=== PATIENT | female | born 1965 | race Caucasian/White ===

== ENCOUNTER 2024-02-12 10:46 | Observation (INO) ==
--- NOTE | 2024-02-12 11:41 | Emergency Department Note ---
Impression & Plan AMS (altered mental status) ED Provider Note NAME: HANNY ESPINO AGE: 58 SEX: Female INFORMANT: Patient ED PROVIDER(S): Onel Zaldivar MD CHIEF COMPLAINT: Altered mental status PLAN: Disposition: Admitted Outpatient prescription management: none Referral: None MEDICAL DECISION MAKING: Patient presented with acute agitation and altered mental status. She was quite hysterical in triage. She was requesting tranquilizers. On evaluation the patient was somewhat evasive with questioning. She then agreed to a basic physical examination and something for her mood. She had an IV, blood work, ECG, chest x-ray, CT scan and BioFire testing ordered. IV Ativan was ordered. On reassessment the patient was more relaxed and calm. Patient had a nonischemic ECG. Patient's CBC and chemistry panels were unremarkable except for hypokalemia and dehydration. Cardiac troponin was negative. Magnesium was normal. TSH and talk screen was negative. The patient was given IV potassium and IV normal saline hydration. CT imaging of the head along with chest x-ray did not reveal any acute findings. Bio fire testing was negative. I had a long discussion with family and case management. Family does not feel that she is safe to go home and the patient is extremely paranoid. She is dehydrated. This certainly could be psychiatric but there is concerns due to her lack of history. Psychiatry was consulted here and they currently do not have any inpatient beds. They noted that they will consult on the patient if admitted for further management. Family asked for the patient to be admitted here. As the patient does not appear to have the capacity for son decision making and family is concerned about her ability to care a 302 petition statement was obtained by the manager garage. This was converted to warrant by the delegate. Patient is currently hemodynamically stable, albeit hypertensive. Consultation was made with Dr. Jeff Beck of the [facility] service. Patient was evaluated in the ER for further management. Care/management discussed with: manager garage Level of care consideration(s): After review of the information above and other included data, I feel the patient requires escalation of care to admission Triage Nursing notes: reviewed and agree them. Vital Signs: reviewed and remarkable for tachycardia Additional History obtained from: Patient's . He notes that she has been having alevism overtones and periods of abnormal behavior for several months. Chronic Medical/Social Conditions affecting care: Migraine Prior/ Outside/ External records reviewed: Primary care note reviewed from 2022. No concerning issues noted. Diagnosis: Migraines, hypertension. Differential Diagnosis: Psychiatric, infection, hypoglycemia, electrolyte abnormalities, overdose, toxicologic, cardiac sources, intracerebral event, neurologic, trauma, as well as other pathologies. Diagnostics, independently interpreted by me: ECG: Twelve-lead ECG reveals a normal sinus rhythm at 87 bpm. RVH. Poor R wave progression with nonspecific ST abnormality inferolaterally. Cardiac Monitoring: Cardiac monitoring ordered by me: The patient was placed on continuous cardiac monitoring and observed. It revealed a normal sinus rhythm at 80 beats per minute without ectopy or evidence of dysrhythmia. Medical decision rules: none Imaging studies: Head CT: A noncontrast CT scan of the head was performed and was negative for tumor, fracture, intracranial hemorrhage, or other acute pathology. Chest x-ray. Findings: A chest x-ray was performed and revealed no pneumothorax, effusion, infiltrate, pulmonary edema, free air under the diaphragm, or wide mediastinum. Impression: No acute disease. HPI: 58 year old Female arrives for evaluation of altered mental status. Family is present and helps with the history. Patient is requesting "I need tranquilizers". She also states that she has a brain tumor and she is going to . Patient was quite hysterical in triage and noted that Mc had put a tumor in the front of her brain. She feels like she is going to today. states over the last 2 months that she has been having periods where she seemed to be off and noting her alevism overtones. Patient was quite hysterical at times yesterday. He did summon EMS and police. She was evaluated by state police and he noted at that time she was very calm and without issues. She was not taken into custody. She became more hysterical today and family brought her to the emergency department. Patient is currently denying any headache, neck pain, back pain, urinary problems, chest pain, difficulty breathing, abdominal pain, vomiting, numbness, or visual changes. Patient is evasive about questioning and refusing to answer detailed inquiries. History is limited because of her cooperativity and paranoia. PAST MEDICAL HISTORY: See Below, hypertension, migraines PAST SURGICAL HISTORY: See Below, SOCIAL HISTORY: See Below, HOME MEDICATIONS: See Below ALLERGIES: See Below VITALS: See Below PHYSICAL EXAMINATION: GENERAL: Awake, alert, agitated-appearing, in mild distress HENT: Normocephalic, atraumatic. Oropharynx unremarkable. EYES: Normal conjunctiva. Sclera non-icteric. EOMI NECK: Inspection normal. Non-tender. Supple. No nuchal rigidity. FROM. No masses. RESPIRATORY: Clear to auscultation. No wheezes. No rales. Normal respiratory effort. CARDIAC: Normal rate. Normal rhythm. No murmurs. No rubs. Extremities warm and well perfused. Pulses equal. No JVD. GI: Soft, non-distended. No tenderness to palpation. No rebound or guarding. No masses. MUSCULOSKELETAL: Atraumatic. Chest examination reveals no tenderness. The back is symmetrical on inspection without obvious abnormality. There is no CVA tenderness to palpation. No joint edema. LOWER EXTREMITIES: Calves are equal size bilaterally and non-tender. No edema. No discoloration. NEURO: Normal sensorium. No sensory or motor deficits noted. SKIN: No rash or jaundice noted. PSYCH: Agitated mood. Christian overtones expressed. PROCEDURES: none CRITICAL CARE: none OBSERVATION NOTE: none Past Med/Surg History Medical History Asthma NO INHALERS- NO PROBLEM FOR YRS Depression GERD (gastroesophageal reflux disease) NO MEDS Hypertension Kidney stones Migraine Muscle spasm Surgical History H/O: hysterectomy History of appendectomy History of bowel resection 18 YRS AGO History of colonoscopy History of esophagogastroduodenoscopy (EGD) Social History Smoking Status: Never smoker Second Hand Exposure: No; Do You Dip or Chew Tobacco: No; Hx Alcohol Use: No Hx Substance Use: No Preferred Language: Peruvian Communication Ability: Effective Visual Impairment: No Limitations Hearing Ability: Normal Infrastructure Tech Required: No Beliefs That Will Affect Care: None marital status: Current Living Situation: Spouse current occupational status: employed 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 Feels Safe at Home: Yes caffeine: No Assistive Devices: None Allergies Allergies Allergy/AdvReac Type Severity Reaction Status Date / Time NSAIDS (Non-Steroidal Allergy Intermediate asthma Verified 07/27/23 14:44 Anti-Inflamma attack Home Meds Previous Rx's Medication Instructions Recorded amlodipine 10 mg tablet 10 mg PO DAILY #90 tabs 02/04/23 citalopram 20 mg tablet 20 mg PO DAILY #90 tabs 02/04/23 Results & Data (ED) Vital Signs Vital Signs - 24 hr 02/12/24 10:55 02/12/24 12:03 02/12/24 12:06 Temperature 36.6 C Temperature Source Skin Pulse Rate 120 H 94 H Pulse Rate [Right Finger] 89 Pulse Rate from SpO2 Sensor Pulse Rhythm [Right Finger] Regular Pulse Strength [Right Finger] Normal Respiratory Rate 20 12 Respiratory Effort / Characteristics Non-Labored Spontaneous Respiratory Depth Normal Respiratory Pattern Regular Blood Pressure 145/98 H Blood Pressure [Right Arm] 148/88 H Blood Pressure Mean 113 Blood Pressure Mean [Right Arm] 108 Pulse Oximetry 98 99 Oxygen Delivery Method Room Air Room Air Sepsis Recent Fever Within 48 Hours No Sepsis New/Unexplained Change in Mental Status N/A Sepsis Action Taken by Nursing No Action Required 02/12/24 13:19 02/12/24 14:55 02/12/24 15:00 Temperature Temperature Source Pulse Rate 78 71 Pulse Rate [Right Finger] 81 Pulse Rate from SpO2 Sensor 81 71 Pulse Rhythm [Right Finger] Pulse Strength [Right Finger] Respiratory Rate 14 17 17 Respiratory Effort / Characteristics Non-Labored Respiratory Depth Normal Respiratory Pattern Blood Pressure 145/93 H 135/88 Blood Pressure [Right Arm] 105/71 Blood Pressure Mean 110 103 Blood Pressure Mean [Right Arm] 82 Pulse Oximetry 96 96 100 Oxygen Delivery Method Room Air Sepsis Recent Fever Within 48 Hours Sepsis New/Unexplained Change in Mental Status Sepsis Action Taken by Nursing 02/12/24 15:00 02/12/24 15:30 02/12/24 16:00 Temperature Temperature Source Pulse Rate 75 67 Pulse Rate [Right Finger] 80 Pulse Rate from SpO2 Sensor 66 Pulse Rhythm [Right Finger] Pulse Strength [Right Finger] Respiratory Rate 20 25 H 22 Respiratory Effort / Characteristics Respiratory Depth Respiratory Pattern Blood Pressure 135/87 125/79 Blood Pressure [Right Arm] 135/88 Blood Pressure Mean 103 94 Blood Pressure Mean [Right Arm] 103 Pulse Oximetry 100 97 Oxygen Delivery Method Sepsis Recent Fever Within 48 Hours Sepsis New/Unexplained Change in Mental Status Sepsis Action Taken by Nursing 02/12/24 16:30 02/12/24 16:36 02/12/24 16:50 Temperature Temperature Source Pulse Rate 67 68 95 H Pulse Rate [Right Finger] Pulse Rate from SpO2 Sensor 67 Pulse Rhythm [Right Finger] Pulse Strength [Right Finger] Respiratory Rate 23 15 Respiratory Effort / Characteristics Respiratory Depth Respiratory Pattern Blood Pressure 118/76 Blood Pressure [Right Arm] Blood Pressure Mean 90 Blood Pressure Mean [Right Arm] Pulse Oximetry 97 Oxygen Delivery Method Sepsis Recent Fever Within 48 Hours Sepsis New/Unexplained Change in Mental Status Sepsis Action Taken by Nursing 02/12/24 17:00 02/12/24 17:00 02/12/24 17:00 Temperature Temperature Source Pulse Rate 84 Pulse Rate [Right Finger] 80 Pulse Rate from SpO2 Sensor Pulse Rhythm [Right Finger] Pulse Strength [Right Finger] Respiratory Rate 17 16 Respiratory Effort / Characteristics Respiratory Depth Respiratory Pattern Blood Pressure 148/94 H Blood Pressure [Right Arm] 148/94 H Blood Pressure Mean 111 Blood Pressure Mean [Right Arm] 112 Pulse Oximetry 97 98 Oxygen Delivery Method Room Air Sepsis Recent Fever Within 48 Hours Sepsis New/Unexplained Change in Mental Status Sepsis Action Taken by Nursing 02/12/24 17:10 02/12/24 17:20 02/12/24 17:40 Temperature Temperature Source Pulse Rate 85 82 74 Pulse Rate [Right Finger] Pulse Rate from SpO2 Sensor 73 Pulse Rhythm [Right Finger] Pulse Strength [Right Finger] Respiratory Rate 22 13 23 Respiratory Effort / Characteristics Respiratory Depth Respiratory Pattern Blood Pressure Blood Pressure [Right Arm] Blood Pressure Mean Blood Pressure Mean [Right Arm] Pulse Oximetry 99 100 Oxygen Delivery Method Sepsis Recent Fever Within 48 Hours Sepsis New/Unexplained Change in Mental Status Sepsis Action Taken by Nursing 02/12/24 19:00 Temperature Temperature Source Pulse Rate Pulse Rate [Right Finger] 80 Pulse Rate from SpO2 Sensor Pulse Rhythm [Right Finger] Pulse Strength [Right Finger] Respiratory Rate 19 Respiratory Effort / Characteristics Respiratory Depth Respiratory Pattern Blood Pressure Blood Pressure [Right Arm] 179/104 H Blood Pressure Mean Blood Pressure Mean [Right Arm] 129 Pulse Oximetry 99 Oxygen Delivery Method Room Air Sepsis Recent Fever Within 48 Hours Sepsis New/Unexplained Change in Mental Status Sepsis Action Taken by Nursing Laboratory Data 02/12/24 11:40 02/12/24 11:40 Lab Results 02/12/24 02/12/24 02/12/24 Range/Units 11:40 11:43 13:35 WBC 6.25 (4.8-10.8) K/ul RBC 4.91 (4.20-5.40) M/uL Hgb 14.7 (12.0-16.0) g/dl Hct 43.2 (37.0-47.0) % MCV 88.0 (80.0-100.0) fL MCH 29.9 (25.0-34.0) pg MCHC 34.0 (32.0-36.0) g/dL RDW Std Deviation 39.6 (36.4-46.3) fL RDW Coeff of Joshua 12.3 (11.5-14.5) % Plt Count 195 (130-400) K/uL MPV 9.8 (9.4-12.4) fL Immature Gran % (Auto) 0.2 % Neut % (Auto) 72.6 % Lymph % (Auto) 20.3 % Mckean % (Auto) 6.2 % Eos % (Auto) 0.2 % Baso % (Auto) 0.5 % Neut # (Auto) 4.54 (1.40-6.50) K/uL Lymph # (Auto) 1.27 (1.20-3.40) K/uL Mckean # (Auto) 0.39 (0.11-0.59) K/uL Eos # (Auto) 0.01 (0.00-0.50) K/uL Baso # (Auto) 0.03 (0.00-0.20) K/uL Immature Gran # (Auto) 0.01 (0.01-0.20) K/uL ESR 25 (0-30) mm/hr Sodium 141 (136-145) mmol/L Potassium 2.9 L (3.5-5.1) mmol/L Chloride 105 (98-107) mmol/L Carbon Dioxide 24 (21-32) mmol/L Anion Gap 12 H (3-11) BUN 19 (6-23) mg/dl Creatinine 0.66 (0.6-1.2) mg/dl Est Cr Clr Drug Dosing Not Reportable Est GFR ( Amer) 111.3 ml/min Est GFR (Non-Af Amer) 96.0 ml/min BUN/Creatinine Ratio 28.8 H (10-20) Glucose 115 H (70-99(Fasting)) mg/dl Calcium 10.3 (8.6-10.3) mg/dl Magnesium 2.0 (1.7-2.4) mg/dl Total Bilirubin 0.8 (0.2-1.0) mg/dl AST 17 (13-39) U/L ALT 16 (7-52) U/L Alkaline Phosphatase 69 (34-104) U/L Troponin I High Sens 6.5 (0-14) pg/ml Total Protein 7.9 (6.0-8.3) gm/dl Albumin 4.8 (3.4-5.0) gm/dl Globulin 3.1 (2.5-4.0) gm/dl Albumin/Globulin Ratio 1.5 (0.9-2) Procalcitonin < 0.02 (0-0.5) ng/ml TSH 1.209 (0.300-4.500) uIu/ml Urine Color Dark Yellow Urine Appearance Cloudy A (Clear) Urine pH 5.5 (4.5-7.5) Ur Specific Cornelius 1.032 H (1.000-1.030) Urine Protein 2+ H (Negative) Urine Glucose (UA) Negative (Negative) Urine Ketones 4+ H (Negative) Urine Blood Negative (Negative) Urine Nitrite Negative (Negative) Urine Bilirubin Negative (Negative) Urine Urobilinogen Negative (Negative) Ur Leukocyte Esterase Negative (Negative) Urine WBC (Auto) 0-5 (0-5) /hpf Urine RBC (Auto) 0-2 (0-2) /hpf U Hyaline Cast (Auto) 3-5 H (0-2) /lpf U Epithel Cells (Auto) 6-10 H (0-2) /hpf Urine Bacteria (Auto) 1+ H (None Seen) Ur Random Creatinine 251.9 mg/dl U Random Total Protein 128.5 H (0-11.9) mg/dl Protein/Creatinin Ratio 0.5 H (0-0.2) Salicylates < 3.0 L (3.0-30) mg/dl Urine Opiates Screen Neg (Neg) Ur Methadone, Qual Neg (Neg) Acetaminophen < 3 L (10-30) ug/ml Urine Barbiturates Neg (Neg) Ur Phencyclidine (PCP) Neg (Neg) U Amphetamin/Meth Scrn Neg (Neg) MDMA (Ecstasy) Screen Neg (Neg) U Benzodiazepines Scrn Neg (Neg) Ur Cocaine Metabolite Neg (Neg) U Marijuana (THC) Screen Neg (Neg) Ethyl Alcohol mg/dL < 10.0 (<10.0) mg/dl Adenovirus (PCR) Not Detected (NotDetected) B. pertussis DNA (PCR) Not Detected (NotDetected) B.parapertussis DNA PCR Not Detected (NotDetected) C. pneumoniae DNA (PCR) Not Detected (NotDetected) Coronavirus OC43 (PCR) Not Detected (NotDetected) Coronavirus HKU1 (PCR) Not Detected (NotDetected) Coronavirus 229E (PCR) Not Detected (NotDetected) SARS-CoV-2 (PCR) Not Detected (NotDetected) Coronavirus NL63 (PCR) Not Detected (NotDetected) Human Metapneumovir PCR Not Detected (NotDetected) Influenza Type A (PCR) Not Detected (NotDetected) Influenza Type B (PCR) Not Detected (NotDetected) M. pneumoniae (PCR) Not Detected (NotDetected) Parainfluenza 1 (PCR) Not Detected (NotDetected) Parainfluenza 2 (PCR) Not Detected (NotDetected) Parainfluenza 3 (PCR) Not Detected (NotDetected) Parainfluenza 4 (PCR) Not Detected (NotDetected) RSV (PCR) Not Detected (NotDetected) Entero/Rhino (PCR) Not Detected (NotDetected) Administered Medications Sodium Chloride (Nss) 1,000 mls @ 125 mls/hr IV .Q8H [facility] Stop: 03/13/24 12:59 Last Infusion: 02/12/24 14:02 Dose: 125 mls/hr Documented By: Infusion: 02/12/24 13:44 Dose: 0 mls/hr Documented By: Admin: 02/12/24 13:16 Dose: 125 mls/hr Documented By: INOCENCIO Discontinued Medications Potassium Chloride (K Brian / Wtr) 10 meq in 100 mls @ 100 mls/hr IV ONE ONE Stop: 02/12/24 13:47 Last Infusion: 02/12/24 14:18 Dose: Infused Documented By: Admin: 02/12/24 13:13 Dose: 100 mls/hr Documented By: INOCENCIO Sodium Chloride (Nss) 500 mls @ 999 mls/hr IV .Q31M ONE Stop: 02/12/24 13:18 Last Infusion: 02/12/24 14:03 Dose: Infused Documented By: Admin: 02/12/24 13:38 Dose: 999 mls/hr Documented By: JACKI Lorazepam (Lorazepam 1 Mg/1 Ml Syr Ed Inj Use) 2 mg IV ONE STA Stop: 02/12/24 11:31 Last Admin: 02/12/24 12:09 Dose: 2 mg Documented By: JACKI Imaging Data Radiologist's Impression: Chest X-Ray 02/12/24 11:09 SINGLE VIEW CHEST CLINICAL HISTORY: Change in mental status. FINDINGS: An AP, portable, semierect chest radiograph is compared to study dated 11/12/2022. The examination is degraded by portable technique and apical lordotic positioning. The cardiomediastinal silhouette is top normal for projection. The lungs and pleural spaces are clear. No pneumothorax is seen. The skeletal structures are osteopenic. The bony thorax is grossly intact. Degenerative change is noted in the thoracic spine. IMPRESSION: No active disease in the chest. ACT 112: Negative or not required by law. Electronically signed by: Daniel Gatica M.D. 02/12/2024 12:[address] 02/12/24 11:09 CT SCAN OF THE BRAIN WITHOUT IV CONTRAST CLINICAL HISTORY: Change in mental status. COMPARISON STUDY: No priors. TECHNIQUE: Unenhanced axial CT scan of the brain is performed from the vertex to the skull base. A dose lowering technique was utilized adhering to the principles of ALARA. CT DOSE: 547.75 mGy.cm FINDINGS: Brain parenchyma: The brain parenchyma is normal in appearance. There is no hemorrhage, mass effect, or evidence of acute territorial ischemia by CT criteria. Flores-white matter differentiation is preserved. No extra-axial fluid collection is seen. Ventricles, sulci, cisterns: Normal in configuration. Intracranial vasculature: There is atherosclerotic calcification of the cavernous carotid arteries. Calvarium: Unremarkable. Sinuses and mastoids: The visualized paranasal sinuses are clear. The mastoid air cells are well pneumatized. Orbits: The bony orbits are grossly intact. IMPRESSION: There is no hemorrhage, mass effect, or evidence of acute territorial ischemia by CT criteria. ACT 112: Negative or not required by law. Electronically signed by: Daniel Gatica M.D. 02/12/2024 12:31 PM Discharge Plan Visit Data Chief Complaint: Mental Health Evaluation Stated Complaint: BRAIN TUMOR/MENTAL HEALTH EVAL ED Provider: Onel Zaldivar Discharge Problem: AMS (altered mental status) Forms Stand Alone Forms: [facility] [employer], Suicide Prevention Resources Prescriptions Prescriptions: No Action amlodipine 10 mg tablet 10 mg PO DAILY Qty: 90 3RF citalopram 20 mg tablet 20 mg PO DAILY Qty: 90 3RF Referrals Referrals: Antonio Eisenberg MD [Primary Care Provider] -
[2024-02-12] MEDS: LORazepam 1 MG/1 ML SYR ED Inj Use IV STA (12:09)
[2024-02-12 12:22] LABS: Basophils # (auto) 0.03 K/uL (0.00-0.20); Basophils % (auto) 0.5 %; Eosinophils # (auto) 0.01 K/uL (0.00-0.50); Eosinophils % (auto) 0.2 %; Hematocrit (blood only) 43.2 % (37.0-47.0); Hemoglobin 14.7 g/dl (12.0-16.0); Immature Granulocytes # (auto) 0.01 K/uL (0.01-0.20); Immature Granulocytes % (auto) 0.2 %; Lymphocytes # (auto) 1.27 K/uL (1.20-3.40); Lymphocytes % (auto) 20.3 %; Mean Corpuscular Hemoglobin 29.9 pg (25.0-34.0); Mean Platelet Volume 9.8 fL (9.4-12.4); Monocytes # (auto) 0.39 K/uL (0.11-0.59); Monocytes % (auto) 6.2 %; Neutrophils # (auto) 4.54 K/uL (1.40-6.50); Neutrophils % (auto) 72.6 %; Platelet Count 195 K/uL (130-400); RDW Coefficient of Variation 12.3 % (11.5-14.5); RDW Standard Deviation 39.6 fL (36.4-46.3); Red Blood Count 4.91 M/uL (4.20-5.40); White Blood Count 6.25 K/ul (4.8-10.8)
[2024-02-12 12:30] LABS: Acetaminophen < 3 ug/ml (10-30); Alanine Aminotransferase 16 U/L (7-52); Albumin Globulin Ratio 1.5 (0.9-2); Albumin Level 4.8 gm/dl (3.4-5.0); Alkaline Phosphatase 69 U/L (34-104); Anion Gap 12 (3-11); Aspartate Aminotransferase 17 U/L (13-39); BUN Creatinine Ratio 28.8 (10-20); Bilirubin,Total 0.8 mg/dl (0.2-1.0); Blood Urea Nitrogen 19 mg/dl (6-23); Calcium 10.3 mg/dl (8.6-10.3); Carbon Dioxide 24 mmol/L (21-32); Chloride 105 mmol/L (98-107); Est GFR (African American) 111.3 ml/min; Globulin 3.1 gm/dl (2.5-4.0); Glucose 115 mg/dl (70-99(Fasting)); Potassium 2.9 mmol/L (3.5-5.1); Salicylate < 3.0 mg/dl (3.0-30); Sodium 141 mmol/L (136-145); Total Protein 7.9 gm/dl (6.0-8.3)
--- NOTE | 2024-02-12 12:34 | CT Scan Report ---
CT SCAN OF THE BRAIN WITHOUT IV CONTRAST CLINICAL HISTORY: Change in mental status. COMPARISON STUDY: No priors. TECHNIQUE: Unenhanced axial CT scan of the brain is performed from the vertex to the skull base. A d ose lowering technique was utilized adhering to the principles of ALARA. CT DOSE: 547.75 mGy.cm FINDINGS: Brain parenchyma: The brain parenchyma is normal in appearance. There is no hemorrhage, mass effect, or evidence of acute territorial ischemia by CT criteria. Flores-white matter differentiation is preser jazmin. No extra-axial fluid collection is seen. Ventricles, sulci, cisterns: Normal in configuration. Intracranial vasculature: There is atherosclerotic calcification of the cavernous carotid arteries. Calvarium: Unremarkable. Sinuses and mastoids: The visualized paranasal sinuses are clear. The mastoid air cells are well pneu matized. Orbits: The bony orbits are grossly intact. IMPRESSION: There is no hemorrhage, mass effect, or evidence of acute territorial ischemia by CT tristian reyes. ACT 112: Negative or not required by law. Electronically signed by: Daniel Gatica M.D. 02/12/2024 12:31 PM
--- NOTE | 2024-02-12 12:36 | XRay Report ---
SINGLE VIEW CHEST CLINICAL HISTORY: Change in mental status. FINDINGS: An AP, portable, semierect chest radiograph is compared to study dated 11/12/2022. The exami nation is degraded by portable technique and apical lordotic positioning. The cardiomediastinal silho uette is top normal for projection. The lungs and pleural spaces are clear. No pneumothorax is seen. The skeletal structures are osteopenic. The bony thorax is grossly intact. Degenerative change is not ed in the thoracic spine. IMPRESSION: No active disease in the chest. ACT 112: Negative or not required by law. Electronically signed by: Daniel Gatica M.D. 02/12/2024 12:35 PM
[2024-02-12 12:45] LABS: Thyroid Stimulating Hormone 1.209 uIu/ml (0.300-4.500)
[2024-02-12] MEDS: POTASSIUM CHLORIDE / WTR 10 MEQ/100 ML PLCT IV ONE (13:13)
[2024-02-12 13:15] LABS: Adenovirus PCR Not Detected (NotDetected); Bordetella parapertussis PCR Not Detected (NotDetected); Bordetella pertussis PCR Not Detected (NotDetected); Chlamydia pneumoniae PCR Not Detected (NotDetected); Coronavirus 229E PCR Not Detected (NotDetected); Coronavirus CoV-2 (COVID19)PCR Not Detected (NotDetected); Coronavirus HKU1 PCR Not Detected (NotDetected); Coronavirus NL63 PCR Not Detected (NotDetected); Coronavirus OC43PCR Not Detected (NotDetected); Human Metapneumovirus PCR Not Detected (NotDetected); Influenza A PCR Not Detected (NotDetected); Influenza B PCR Not Detected (NotDetected); Mycoplasma pneumoniae PCR Not Detected (NotDetected); Parainfluenza Virus 1 PCR Not Detected (NotDetected); Parainfluenza Virus 2 PCR Not Detected (NotDetected); Parainfluenza Virus 3 PCR Not Detected (NotDetected); Parainfluenza Virus 4 PCR Not Detected (NotDetected); Respiratory Syncytial VirusPCR Not Detected (NotDetected); Rhinovirus/Enterovirus PCR Not Detected (NotDetected)
[2024-02-12] MEDS: SODIUM CHLORIDE 0.9% 1,000 ML IV SCH (13:16)
[2024-02-12 13:35] LABS: Troponin I High Sensitivity 6.5 pg/ml (0-14)
[2024-02-12] MEDS: SODIUM CHLORIDE 0.9% 500 ML IV ONE (13:38)
[2024-02-12 13:59] LABS: Appearance Urine Cloudy (Clear); Bacteria Urine Automated 1+ (None Seen); Bilirubin Urine Negative (Negative); Blood Urine Negative (Negative); Color Urine Dark Yellow; Glucose Urine UA Negative (Negative); Ketones Urine 4+ (Negative); Leukocyte Esterase Urine Negative (Negative); Nitrite Urine Negative (Negative); Protein Urine 2+ (Negative); RBC Urine Automated 0-2 /hpf (0-2); Specific Gravity Urine 1.032 (1.000-1.030); Urobilinogen Urine Negative (Negative); WBC Urine Automated 0-5 /hpf (0-5); pH Urine 5.5 (4.5-7.5)
[2024-02-12 14:07] LABS: Amphetamines+Metham, Urine Neg (Neg); Barbiturates, Urine Neg (Neg); Benzodiazepine, Urine Neg (Neg); Cocaine, Urine Neg (Neg); MDMA (Ecstacy), Urine Neg (Neg); Marijuana, Urine Neg (Neg); Methadone, Urine Neg (Neg); Opiate, Urine Neg (Neg); Phencyclidine, Urine Neg (Neg)
--- NOTE | 2024-02-12 18:15 | History & Physical Report ---
Date of Service February 12, 2024 Assessment & Plan (1) Acute psychosis: Plan: Suspected auditory hallucinations - God/Mc, parents talking to her. Although she is shinto this is unusual for her Delusions of Jealousy ( being with other women) and somatic (feels she has a brain tumor and she is going to , says she is ) No prior episodes and appears to be reasonable acutely progressive over 6 weeks but much worse the last 2 days Multiple possible etiologies from history: 1) Insomnia 2) Drugs - Diphenhydramine, Excedrin, withdrawal from citalopram 3) Infective - encephalitis, lyme 4) Autoimmune - prior ALCON positive, encephalitis 5) Nutritional - recent diet changes, starvation ketosis, ?vitamin deficiencies 6) psychiatric - longstanding anxiety ?psychotic event Workup: Additional labs ordered - ammonia, VBG, lyme, ESR, CRP, phosphorus, B1, B12, ALCON with reflex, lyme Ideally would get brain MRI - patient currently refusing as she tells me she is Ideally would get lumbar puncture to rule out autoimmune encephalitis Consult psychiatry (2) Encounter for assessment of decision-making capacity: Plan: Patient lacks any insight into her current medical condition therefore does not currently have the caacity to leave against medical advice (3) Hypokalemia: Plan: Suspect due to poor intake, replacement given, repeat with AM labs (4) Anxiety: Plan: Continue citalopram (5) Hypertension: Plan: Continue amlodipine Plan VTE Prophyalxis - low risk, encourage ambulation Diet - regular Disposition - observation to med/surg Admission and Anticipated Discharge Date Admission Date: February 12, 2024 History of Present Illness Chief Complaint: Altered mental state Primary Care Provider: MD Kadie Grant is a 58 year old female who presents to the ER with altered mental state. No family members at bedside when seen. She reports she is in the ER because she went to her [place] house and asked her to bring her to the ER as her has been with other women and stolen money from her late father's estate and buried it. She is also here because she has been going through spiritual things - when I ask her to expand on this she says the spiritual things have made her go this way and that. She denies any current physical complaints. No fever, chills, respiratory, gastrointestinal or urinary complaints. She reports her anxiety is well controlled and initially told me she feels better since stopping the citalopram a few days ago because it made her feel jittery but later on she tells me she stopped the citalopram 3-4 months ago. She denies taking any sleep aids but does report sleeping 2 hours a night which she puts down to neck stiffness. She reports taking Excedrin daily for this neck stiffness. History of migraines in PCP notes although she reports no recent headaches. No vision, speech, hearing changes. No extremity weakness. After ordering the brain MRI she told her nurse and confirmed with me that she was so she couldn't have this and refused a test for confirmation. Discussed presentation with her and sister in law (Sari): 2 years ago her father and she has had problems with depression since. He thinks she has been taking diphenhydramine at night perhaps for the last 6 months to help with sleep and allergic nasal congestion. He also found pantoprazole (her father's prescription) in her bedside drawer. Over the last 6 weeks he describes her having more of a breakdown. She has increasingly had intermediate odd periods where she would say God, Mc and her parents were talking to her. Although she is shinto this appeared to be significantly abnormal for her. 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 These delusions have significantly increased the last 2 days and she has been rambling a lot more and not making sense. She tells her he is her whole world one minute then later accuses him of being with other women (which he denies). At work she stayed in her car and when a co-worker went to help her she said she had the devil inside her and not to touch her, she looked at the patricio and said the world was going to end. Yesterday she told her she had a brain tumor and she was going to . She told her to pray otherwise he was going to hell. He reports her diet has always been bad - loads up on peanut butter, chocolate and cookies but reportedly told she was overweight at her last PCP appointment 6 weeks ago so started dieting with fasting for 16 hours at a time. He notes she does take a multivitamin for her hair, nails. He confirms her sleep has also been bad sleeping 2 hours a night and wandering the rest of the time - he thinks this has been for the last 2-3 months. She has 37 pills of citalopram left in the bottle (picked up 90 pills 70 days ago) - therefore ?2 weeks of not taking citalopram although her reports she would miss the occasional days so more likely just a few days of missed pills, unlikely months as she reported above. Allergies Allergy/AdvReac Type Severity Reaction Status Date / Time NSAIDS (Non-Steroidal Allergy Intermediate asthma Verified 07/27/23 14:44 Anti-Inflamma attack Home Medications Medication Instructions Recorded Confirmed Type amlodipine 10 mg tablet 10 mg PO DAILY #90 tabs 02/04/23 02/12/24 Rx citalopram 20 mg tablet 20 mg PO DAILY #90 tabs 02/04/23 02/12/24 Rx Past Med/Surg History Medical History Asthma NO INHALERS- NO PROBLEM FOR YRS Depression GERD (gastroesophageal reflux disease) NO MEDS Hypertension Kidney stones Migraine Muscle spasm Surgical History H/O: hysterectomy History of appendectomy History of bowel resection 18 YRS AGO History of colonoscopy History of esophagogastroduodenoscopy (EGD) Social History Smoking Status: Never smoker Second Hand Exposure: No; Do You Dip or Chew Tobacco: No; Hx Alcohol Use: No Hx Substance Use: No Preferred Language: Romanian Communication Ability: Effective Visual Impairment: No Limitations Hearing Ability: Normal Bathroom Tiling Professional Required: No Beliefs That Will Affect Care: None marital status: Current Living Situation: Spouse current occupational status: employed 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 Feels Safe at Home: Yes caffeine: No Assistive Devices: None Review of Systems Review of Systems: All systems reviewed & are unremarkable except as noted in HPI & below Physical Exam Constitutional: WD/WN, vitals as above Eyes: PERRL, conjunctivae normal, anicteric sclerae EOM intact bilaterally ENMT: external ear and nose normal, oropharynx normal Neck: trachea midline, no thyromegaly Respiratory: normal respiratory effort, lungs clear to auscultation Cardiovascular: RRR, no murmur, no edema Gastrointestinal (Abdomen): normal bowel sounds, soft, nontender, no hepatosplenomegaly Musculoskeletal: no cyanosis or clubbing, extremities motor strength 5/5 Skin: no rashes, warm and dry Neurologic: CN's II-XI intact bilaterally, moves all extremities, awake and + confused; + abnormal deep tendon reflexes (increased b/l equal) and no focal motor deficits Psychiatric: Orientation: alert and oriented x 3 Apperance: appropriately dressed Eye Contact: good eye contact Motor Behavior: + psychomotor retardation Speech: normal rate/rhythm/volume of speech Affect: + flat affect Thought Process: + looseness of associations Thought Content: + paranoid and + delusions (jealous and somatic type ( being with other women, being )) Genitourinary: no CVA tenderness Results & Data Results & Data Vital Signs (Past 12 Hours) Vital Signs Temp Pulse Pulse Resp BP BP Pulse Ox 02/12/24 17:40 74 23 100 02/12/24 17:20 82 13 99 02/12/24 17:10 85 22 02/12/24 17:00 84 17 97 02/12/24 17:00 148/94 H 02/12/24 16:50 95 H 15 02/12/24 16:36 68 02/12/24 16:30 67 23 118/76 97 02/12/24 16:00 67 22 125/79 97 02/12/24 15:30 75 25 H 135/87 02/12/24 15:00 80 20 135/88 100 02/12/24 15:00 71 17 135/88 100 02/12/24 14:55 78 17 145/93 H 96 02/12/24 13:19 81 14 105/71 96 02/12/24 12:06 89 12 148/88 H 99 02/12/24 12:03 94 H 02/12/24 10:55 36.6 C 120 H 20 145/98 H 98 O2 Del Method 02/12/24 17:40 02/12/24 17:20 02/12/24 17:10 02/12/24 17:00 02/12/24 17:00 02/12/24 16:50 02/12/24 16:36 02/12/24 16:30 02/12/24 16:00 02/12/24 15:30 02/12/24 15:00 02/12/24 15:00 02/12/24 14:55 02/12/24 13:19 Room Air 02/12/24 12:06 Room Air 02/12/24 12:03 02/12/24 10:55 Room Air Laboratory Results Abnormal lab results 02/12/24 02/12/24 Range/Units 11:40 13:35 Potassium 2.9 L (3.5-5.1) mmol/L Anion Gap 12 H (3-11) BUN/Creatinine Ratio 28.8 H (10-20) Glucose 115 H (70-99(Fasting)) mg/dl Urine Appearance Cloudy A (Clear) Ur Specific [place] 1.032 H (1.000-1.030) Urine Protein 2+ H (Negative) Urine Ketones 4+ H (Negative) U Hyaline Cast (Auto) 3-5 H (0-2) /lpf U Epithel Cells (Auto) 6-10 H (0-2) /hpf Urine Bacteria (Auto) 1+ H (None Seen) U Random Total Protein 128.5 H (0-11.9) mg/dl Protein/Creatinin Ratio 0.5 H (0-0.2) Salicylates < 3.0 L (3.0-30) mg/dl Acetaminophen < 3 L (10-30) ug/ml Diagnostic Findings CT SCAN OF THE BRAIN WITHOUT IV CONTRAST CLINICAL HISTORY: Change in mental status. COMPARISON STUDY: No priors. TECHNIQUE: Unenhanced axial CT scan of the brain is performed from the vertex to the skull base. A dose lowering technique was utilized adhering to the principles of ALARA. CT DOSE: 547.75 mGy.cm FINDINGS: Brain parenchyma: The brain parenchyma is normal in appearance. There is no hemorrhage, mass effect, or evidence of acute territorial ischemia by CT criteria. Flores-white matter differentiation is preserved. No extra-axial fluid collection is seen. Ventricles, sulci, cisterns: Normal in configuration. Intracranial vasculature: There is atherosclerotic calcification of the cavernous carotid arteries. Calvarium: Unremarkable. Sinuses and mastoids: The visualized paranasal sinuses are clear. The mastoid air cells are well pneumatized. Orbits: The bony orbits are grossly intact. IMPRESSION: There is no hemorrhage, mass effect, or evidence of acute territorial ischemia by CT criteria. Medications Administered ER Medications Given: Lorazepam 2mg IV Potassium chloride 10 meq IV Normal saline 500ml bolus Normal saline @ 125ml/hr ECG Rate (beats per minute): 87 Rhythm: normal sinus Findings: + other (non-specific T wave flattening inferiorly) Comparison ECG Date: no prior available Code Status & VTE Plan Code Status Full VTE Prophylaxis Plan VTE Prophylaxis will be ordered: No PG Care Time/CCT Total # of Minutes Spent Total Time Spent with Patient: Total time spent is greater than 50% in coordination of care (as documented) at patient's floor/unit and/or counseling patient: Coding Level of Care Code 04218 INT INP/OBS CARE 3/75MIN Diagnoses Acute psychosis F23 Encounter for assessment of decision-making capacity Z00.8 Hypokalemia E87.6 Anxiety F41.9 Hypertension I10
[2024-02-12 18:37] LABS: Total Protein Urine Random 128.5 mg/dl (0-11.9)
[2024-02-12] MEDS ORDERED: diazePAM 5 MG/ML 10ML VIAL IV PRN (18:39)
[2024-02-12 18:43] LABS: Creatinine Urine Random 251.9 mg/dl; Protein Creatinine Ratio Urine 0.5 (0-0.2)
[2024-02-12 19:46] LABS: Base Excess VBG -1.3 mEq/L; HCO3 VBG 24 mmol/L; Oxygen Saturation VBG 78.3 %; PCO2 VBG 40 mmHg (38-50); PO2 VBG 47 mmHg; pH VBG 7.38 (7.36-7.41)
[2024-02-12 20:01] LABS: Phosphorus 2.5 mg/dl (2.5-4.9)
[2024-02-12] MEDS: POTASSIUM CHLORIDE CRTAB 20 MEQ TABCR PO STA (20:05)
[2024-02-12 20:34] LABS: Lyme Screen Rflx Confirmation Positive (Negative)
[2024-02-12 21:10] LABS: C Reactive Protein < 0.50 mg/dl (0-0.5)
[2024-02-12] MEDS: cefTRIAXone SODIUM 2,000 MG in DEXTROSE 5 % MINI-B 50 ML IV SCH (22:39)
[2024-02-13] MEDS: ACETAMINOPHEN 325 MG TAB PO PRN (03:04)
[2024-02-13] MEDS: amLODIPine BESYLATE 5 MG TAB PO SCH (07:32)
[2024-02-13] MEDS: CYANOCOBALAMIN (B-12) 500 MCG TABLET PO SCH (07:32)
[2024-02-13] MEDS: CITALOPRAM 20 MG TAB PO SCH (07:32)
[2024-02-13 07:59] LABS: Basophils # (auto) 0.03 K/uL (0.00-0.20); Basophils % (auto) 0.5 %; Eosinophils # (auto) 0.06 K/uL (0.00-0.50); Eosinophils % (auto) 0.9 %; Hematocrit (blood only) 38.3 % (37.0-47.0); Immature Granulocytes # (auto) 0.02 K/uL (0.01-0.20); Immature Granulocytes % (auto) 0.3 %; Lymphocytes # (auto) 2.27 K/uL (1.20-3.40); Lymphocytes % (auto) 35.7 %; Mean Corpuscular Hemoglobin 29.7 pg (25.0-34.0); Mean Corpuscular Hgb Conc 33.9 g/dL (32.0-36.0); Mean Corpuscular Volume 87.4 fL (80.0-100.0); Mean Platelet Volume 9.8 fL (9.4-12.4); Monocytes # (auto) 0.37 K/uL (0.11-0.59); Monocytes % (auto) 5.8 %; Neutrophils # (auto) 3.61 K/uL (1.40-6.50); Neutrophils % (auto) 56.8 %; Platelet Count 178 K/uL (130-400); RDW Coefficient of Variation 12.2 % (11.5-14.5); RDW Standard Deviation 39.6 fL (36.4-46.3); Red Blood Count 4.38 M/uL (4.20-5.40); White Blood Count 6.36 K/ul (4.8-10.8)
[2024-02-13 08:23] LABS: Alanine Aminotransferase 14 U/L (7-52); Albumin Globulin Ratio 1.6 (0.9-2); Albumin Level 4.1 gm/dl (3.4-5.0); Alkaline Phosphatase 55 U/L (34-104); Anion Gap 6 (3-11); Aspartate Aminotransferase 14 U/L (13-39); BUN Creatinine Ratio 18.2 (10-20); Bilirubin,Total 0.8 mg/dl (0.2-1.0); Blood Urea Nitrogen 10 mg/dl (6-23); Calcium 9.7 mg/dl (8.6-10.3); Carbon Dioxide 26 mmol/L (21-32); Chloride 109 mmol/L (98-107); Est GFR (African American) 118.2 ml/min; Est GFR (Non-African American) 101.9 ml/min; Globulin 2.6 gm/dl (2.5-4.0); Glucose 90 mg/dl (70-99(Fasting)); Phosphorus 2.5 mg/dl (2.5-4.9); Potassium 3.6 mmol/L (3.5-5.1); Sodium 141 mmol/L (136-145); Total Protein 6.7 gm/dl (6.0-8.3)
--- NOTE | 2024-02-13 13:06 | XRay Report ---
[facility] RADIOGRAP[facility] 3 VIEWS HISTORY: pre-MRI screening. COMPARISON: Head CT February 12, 2024. FINDINGS: There are no radiopaque foreign bodies identified within the orbits. IMPRESSION: No radiopaque foreign bodies identified within the orbits. ACT 112: Negative or not required by law. Electronically signed by: Arsh Serrano M.D. 02/13/2024 1:04 PM
--- NOTE | 2024-02-13 13:43 | Psychiatric Consultation ---
Date of Consultation February 13, 2024 Impression / Recommendations Impression Patient is a 58-year-old with a psychiatric history of bereavement and depression. No history of psychosis. Admitted for an psychotic episode with paranoia, and delusions (sabianism paranoid and somatic themes). This episode occurred in the context of some somatic complaints that include headaches difficulties with memory and attention word-finding, tinnitus, etc. And recent positive results for Lyme's disease and proteinuria. Her condition warrants further investigation due to concerns about psychosis related to a general medical condition. Both Lyme's disease and some other conditions that can cause proteinuria could produce late onset psychosis. There is no evidence of history of mitchell or psychosis at a younger age that was the diagnosis of bipolar disorder, schizophrenia, schizoaffective disorder is unlikely. The lack of adherence to citalopram prescribed to her as a low-dose is unlikely to cause symptoms with the severity that she is presenting. It is unlikely that the medication itself caused the psychosis since the symptoms appear to have started a couple of months ago and worsened in the last 2 weeks while she has been on the medication for a longer period of time. It is unclear if she had been taking [id number] supplements that could account for her psychotic symptoms. This needs further investigation. I agree with the treatment team regarding the need for vitamin B12 supplementation. Her current level of B12 could be adding to the mood symptoms and some of her somatic concerns but is unlikely to be related to the psychosis. The patient has agreed to 12 supplementation. Due to her age, abnormal results on the EKG, and increased overall cardiovascular risk, I do not recommend scheduled antipsychotics at this time. Low-dose olanzapine (2.5 mg - 5 mg daily) could be used as needed in case of severe agitation. The medication can be given in the ODT (melting form) formulation. (1) Unspecified psychosis not due to a substance or known physiological condition: (2) Acute psychosis: Plan 1. Continue monitoring of mood and psychotic symptoms. 2. Continue treatment for general medical conditions as prescribed by primary team. 3. Start B12 supplementation. 4. May use Zyprexa Zydis to 2.5 mg twice a day as needed for agitated psychosis. Not to exceed 5 mg in 24 hours. 5. Avoid the use of other medications with anticholinergic or sedative effect. 6. Continue one-to-one observation. 7. Psychiatry will continue to follow up. Psych History Identifying Data Dx with Depression and treated with Citalopram Chief Complaint "I am going through a spiritual passage I need to cleans my body". History of Present Illness Patient admitted on a 302 on the medical floor due to agitation, paranoia, somatic delusions, bizarre behavior. According to the ED provider note ". . . Patient presented with acute agitation and altered mental status. She was quite hysterical in triage. She was requesting tranquilizers. On evaluation the patient was somewhat evasive with questioning. She then agreed to a basic physical examination and something for her mood. . . CT imaging of the head along with chest x-ray did not reveal any acute findings. Bio fire testing was negative. I had a long discussion with family and case management. Family does not feel that she is safe to go home and the patient is extremely paranoid. . ." Ms. Roldan is a 58-year-old white female with prior history of complicated bereavement, unspecified depression who had been started on citalopram 10 mg daily by her PCP about a year ago due to concerns about depression following the of her father (2 years ago). The patient has no other psychiatric history. I evaluated her privately and her room at bedside. And also interviewed her . The patient told me that approximately 2 weeks ago she started experiencing severe headaches trouble finding her words difficulties with her memory and sleep disturbance. She indicated that she was waking up many times every night unable to have a restorative sleep but still able to perform well at work. She also described the new onset of tinnitus about 6 weeks ago the sound that she experiences are similar to the sound of planes trains furnace running. But denied hearing voices or seeing things. Her described that she may have been "seeing things" because she would express that she was getting messages from God and was writing on eggs and bringing home pictures of Mc making a lot of hyperreligious statements that were unusual for her. Her indicated that in the last month she probably missed 17 doses of her antidepressant medication. Upon admission to the hospital patient was found to have a positive result on the Lyme's disease screening test. Labs also showed proteinuria and low vitamin B12. Her EKG shows QTc of 490ms. Primary care started treatment with ceftriaxone 2g IV daily and B12 supplementation. SOCIAL HX The patient has been for 33 years. She she has no children. 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 The patient was raised by her parents they are now her mother 9 years ago her father 2 years ago. She has 2 brothers. Education: Patient completed high school and attended [employer] school for [employer]. 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 Patient denied a family history of bipolar disorder. Patient's reported that one of her brothers "has some problems" unknown diagnosis. Past Psychiatric History Previous Psych History: Diagnosed with bereavement and depression after the of her father. Prescribed citalopram 10 mg daily by her primary care physician Dr. Hernández. Outpatient Services: The patient denied a history of outpatient psychiatric treatment. Previous Psych Admissions: The patient denied a history of inpatient psychiatric treatment. History of Previous Suicide Attempt: No Past Medication Trials: Citalopram 10 mg daily Additional Notes: According to her the patient had been taking multiple [id number]-[id number] medications including: Benadryl for sleep, Excedrin for headaches, pantoprazole (her father's prescription), Allergies Allergy/AdvReac Type Severity Reaction Status Date / Time NSAIDS (Non-Steroidal Allergy Intermediate asthma Verified 07/27/23 14:44 Anti-Inflamma attack Home Medications Medication Instructions Recorded Confirmed Type amlodipine 10 mg tablet 10 mg PO DAILY #90 tabs 02/04/23 02/12/24 Rx citalopram 20 mg tablet 20 mg PO DAILY #90 tabs 02/04/23 02/12/24 Rx Patient History Medical History Asthma NO INHALERS- NO PROBLEM FOR YRS Depression GERD (gastroesophageal reflux disease) NO MEDS Hypertension Kidney stones Migraine Muscle spasm Surgical History H/O: hysterectomy History of appendectomy History of bowel resection 18 YRS AGO History of colonoscopy History of esophagogastroduodenoscopy (EGD) Social History Smoking Status: Never smoker Second Hand Exposure: No; Do You Dip or Chew Tobacco: No; Hx Alcohol Use: No Hx Substance Use: No Preferred Language: British Communication Ability: Effective Visual Impairment: No Limitations Hearing Ability: Normal Computer Numerical Control Programmer Required: No Beliefs That Will Affect Care: None marital status: Current Living Situation: Spouse current occupational status: employed 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 Speech: normal rate/rhythm/volume of speech Some subjective difficulty finding words. Able to answer questions utilizing appropriate vocabulary. Affect: + depressed affect, + anxious affect and + labile affect Mood: + depressed mood and + anxious mood Thought Process: + confabulations and + concrete thought process Thought Content: + preoccupation and + delusions (Paranoid and sabianism things, somatic delusions (, brain tumor)) Suicidal Thoughts: denies suicidal thoughts Homicidal Thoughts: denies homicidal thoughts Hallucinations: + auditory hallucinations (denied voices, reported she spoke about hearing God's voice.) Cognition: recent memory grossly intact; + attention not intact Unable to spell the word WORLD backwards. Unable to do serial 7s or serial of 3s. Able to repeat 3 out of 3 words immediately but unable to remember any of them after 5 minutes. Unable to recall any of the words even when provided with cues. Estimated Intelligence: consistent with education level Insight: + impaired insight Judgment: + impaired judgement Vital Signs (Past 24 Hours): Last Vital Signs Temp 36.7 C 02/12/24 21:37 Pulse 72 02/12/24 21:37 Resp 18 02/12/24 21:37 BP 160/88 H 02/12/24 21:37 Pulse Ox 99 02/12/24 21:37 O2 Del Method Room Air 04/20/24 21:37 Exam Statement: A physical exam was performed in the ED by Dr. Beck for the purposes of medical clearance. I accept that physical as correct and adequate for the purposes of the inpatient physical exam. Review of Systems Fatigue. Denied blurry vision, denied double vision. Positive for tinnitus Denied dysuria Complain of recent hair loss. Frequent headaches, difficulties with her memory, difficulties with language (word-finding). Complaining of unsteady gait. As stated above. Results & Data (PSY) Laboratory Results Microbiology 02/12/24 13:35 Urine,Clean Catch Urine Culture - Final More than three types of organisms present, all high counts mixed probable skin ayde - No further identifications or sensitivities to follow. Labs 02/12/24 02/12/24 02/12/24 11:40 11:43 13:35 WBC 6.25 RBC 4.91 Hgb 14.7 Hct 43.2 MCV 88.0 MCH 29.9 MCHC 34.0 RDW Std Deviation 39.6 RDW Coeff of Joshua 12.3 Plt Count 195 MPV 9.8 Immature Gran % (Auto) 0.2 Neut % (Auto) 72.6 Lymph % (Auto) 20.3 Ritchie % (Auto) 6.2 Eos % (Auto) 0.2 Baso % (Auto) 0.5 Neut # (Auto) 4.54 Lymph # (Auto) 1.27 Ritchie # (Auto) 0.39 Eos # (Auto) 0.01 Baso # (Auto) 0.03 Immature Gran # (Auto) 0.01 ESR 25 VBG pH VBG pCO2 VBG pO2 VBG HCO3 VBG O2 Saturation VBG Base Excess Carboxyhemoglobin Sodium 141 Potassium 2.9 L Chloride 105 Carbon Dioxide 24 Anion Gap 12 H BUN 19 Creatinine 0.66 Est Cr Clr Drug Dosing Not Reportable Est GFR ( Amer) 111.3 Est GFR (Non-Af Amer) 96.0 BUN/Creatinine Ratio 28.8 H Glucose 115 H Calcium 10.3 Phosphorus Magnesium 2.0 Total Bilirubin 0.8 AST 17 ALT 16 Alkaline Phosphatase 69 Ammonia Troponin I High Sens 6.5 C-Reactive Protein Total Protein 7.9 Albumin 4.8 Globulin 3.1 Albumin/Globulin Ratio 1.5 Vitamin B12 Procalcitonin < 0.02 TSH 1.209 Urine Color Dark Yellow Urine Appearance Cloudy A Urine pH 5.5 Ur Specific Bertha 1.032 H Urine Protein 2+ H Urine Glucose (UA) Negative Urine Ketones 4+ H Urine Blood Negative Urine Nitrite Negative Urine Bilirubin Negative Urine Urobilinogen Negative Ur Leukocyte Esterase Negative Urine WBC (Auto) 0-5 Urine RBC (Auto) 0-2 U Hyaline Cast (Auto) 3-5 H U Epithel Cells (Auto) 6-10 H Urine Bacteria (Auto) 1+ H Ur Random Creatinine 251.9 U Random Total Protein 128.5 H Protein/Creatinin Ratio 0.5 H Salicylates < 3.0 L Urine Opiates Screen Neg Ur Methadone, Qual Neg Acetaminophen < 3 L Urine Barbiturates Neg Ur Phencyclidine (PCP) Neg U Amphetamin/Meth Scrn Neg MDMA (Ecstasy) Screen Neg U Benzodiazepines Scrn Neg Ur Cocaine Metabolite Neg U Marijuana (THC) Screen Neg Ethyl Alcohol mg/dL < 10.0 Adenovirus (PCR) Not Detected B. pertussis DNA (PCR) Not Detected B.parapertussis DNA PCR Not Detected Lyme Disease Screen Lyme Disease IgG Ab Lyme Disease IgM Ab C. pneumoniae DNA (PCR) Not Detected Coronavirus OC43 (PCR) Not Detected Coronavirus HKU1 (PCR) Not Detected Coronavirus 229E (PCR) Not Detected SARS-CoV-2 (PCR) Not Detected Coronavirus NL63 (PCR) Not Detected Human Metapneumovir PCR Not Detected Influenza Type A (PCR) Not Detected Influenza Type B (PCR) Not Detected M. pneumoniae (PCR) Not Detected Parainfluenza 1 (PCR) Not Detected Parainfluenza 2 (PCR) Not Detected Parainfluenza 3 (PCR) Not Detected Parainfluenza 4 (PCR) Not Detected RSV (PCR) Not Detected Entero/Rhino (PCR) Not Detected 02/12/24 02/13/24 19:09 07:47 WBC 6.36 RBC 4.38 Hgb 13.0 Hct 38.3 MCV 87.4 MCH 29.7 MCHC 33.9 RDW Std Deviation 39.6 RDW Coeff of Joshua 12.2 Plt Count 178 MPV 9.8 Immature Gran % (Auto) 0.3 Neut % (Auto) 56.8 Lymph % (Auto) 35.7 Ritchie % (Auto) 5.8 Eos % (Auto) 0.9 Baso % (Auto) 0.5 Neut # (Auto) 3.61 Lymph # (Auto) 2.27 Ritchie # (Auto) 0.37 Eos # (Auto) 0.06 Baso # (Auto) 0.03 Immature Gran # (Auto) 0.02 ESR VBG pH 7.38 VBG pCO2 40 VBG pO2 47 VBG HCO3 24 VBG O2 Saturation 78.3 VBG Base Excess -1.3 Carboxyhemoglobin 2.6 Sodium 141 Potassium 3.6 D Chloride 109 H Carbon Dioxide 26 Anion Gap 6 BUN 10 Creatinine 0.55 L Est Cr Clr Drug Dosing Not Reportable Est GFR ( Amer) 118.2 Est GFR (Non-Af Amer) 101.9 BUN/Creatinine Ratio 18.2 Glucose 90 Calcium 9.7 Phosphorus 2.5 2.5 Magnesium 2.0 Total Bilirubin 0.8 AST 14 ALT 14 Alkaline Phosphatase 55 Ammonia 16.0 L Troponin I High Sens C-Reactive Protein < 0.50 Total Protein 6.7 Albumin 4.1 Globulin 2.6 Albumin/Globulin Ratio 1.6 Vitamin B12 276 Procalcitonin TSH Urine Color Urine Appearance Urine pH Ur Specific Bertha Urine Protein Urine Glucose (UA) Urine Ketones Urine Blood Urine Nitrite Urine Bilirubin Urine Urobilinogen Ur Leukocyte Esterase Urine WBC (Auto) Urine RBC (Auto) U Hyaline Cast (Auto) U Epithel Cells (Auto) Urine Bacteria (Auto) Ur Random Creatinine U Random Total Protein Protein/Creatinin Ratio Salicylates Urine Opiates Screen Ur Methadone, Qual Acetaminophen Urine Barbiturates Ur Phencyclidine (PCP) U Amphetamin/Meth Scrn MDMA (Ecstasy) Screen U Benzodiazepines Scrn Ur Cocaine Metabolite U Marijuana (THC) Screen Ethyl Alcohol mg/dL < 10.0 Adenovirus (PCR) B. pertussis DNA (PCR) B.parapertussis DNA PCR Lyme Disease Screen Positive H Lyme Disease IgG Ab Positive H Lyme Disease IgM Ab Positive H C. pneumoniae DNA (PCR) Coronavirus OC43 (PCR) Coronavirus HKU1 (PCR) Coronavirus 229E (PCR) SARS-CoV-2 (PCR) Coronavirus NL63 (PCR) Human Metapneumovir PCR Influenza Type A (PCR) Influenza Type B (PCR) M. pneumoniae (PCR) Parainfluenza 1 (PCR) Parainfluenza 2 (PCR) Parainfluenza 3 (PCR) Parainfluenza 4 (PCR) RSV (PCR) Entero/Rhino (PCR) Diagnostic Findings Psychosis, Unspecified. The differential includes toxic ingestions, psychiatric symptoms of general medical conditions. Medications Administered Acetaminophen (Acetaminophen 325 Mg Tab) 650 mg PO Q4H PRN PRN Reason: pain/fever Stop: 03/13/24 21:33 Last Admin: 02/13/24 09:36 Dose: 650 mg Documented By: Admin: 02/13/24 03:04 Dose: 650 mg Documented By: TRAY Amlodipine Besylate (Amlodipine Besylate 5 Mg Tab) 10 mg PO DAILY [facility] Stop: 03/14/24 08:59 Last Admin: 02/13/24 07:32 Dose: 10 mg Documented By: MADELEINE Citalopram Hydrobromide (Citalopram 20 Mg Tab) 20 mg PO DAILY [facility] Stop: 03/14/24 08:59 Last Admin: 02/13/24 07:32 Dose: 20 mg Documented By: MADELEINE Cyanocobalamin (Cyanocobalamin (B-12) 500 Mcg Tablet) 500 mcg PO QAM [facility] Stop: 03/14/24 08:59 Last Admin: 02/13/24 07:32 Dose: 500 mcg Documented By: MADELEINE Ceftriaxone Sodium 2,000 mg/ (Dextrose) 50 mls @ 100 mls/hr IV Q24H [facility]; Protocol Stop: 02/22/24 21:59 Last Infusion: 02/12/24 23:09 Dose: Infused Documented By: Admin: 02/12/24 22:39 Dose: 100 mls/hr Documented By: TRAY [place] [address] IN/OBS CONSULT LVL 5,80M Patient Type New History Comprehensive Exam Detailed Medical Decision Making High Complexity Diagnoses Unspecified psychosis not due to a substance or known physiological condition F29 Acute psychosis F23
[2024-02-13] MEDS: LORazepam 1 MG in SYRINGE 0.5 ML IV PRN (16:00)
--- NOTE | 2024-02-13 16:44 | Hospitalist Progress Note ---
Date of Service February 13, 2024 Assessment & Plan (1) Acute psychosis: Plan: Suspected auditory hallucinations - God/Mc, parents talking to her. Although she is taoist this is unusual for her Delusions of Jealousy ( being with other women) and somatic (feels she has a brain tumor and she is going to , says she is ) No prior episodes and appears to be reasonable acutely progressive over 6 weeks but much worse the last 2 days Multiple possible etiologies from history: 1) Insomnia 2) Drugs - Diphenhydramine, Excedrin, withdrawal from citalopram 3) Infective - encephalitis, lyme 4) Autoimmune - prior ALCON positive, encephalitis 5) Nutritional - recent diet changes, starvation ketosis, ?vitamin deficiencies 6) psychiatric - longstanding anxiety ?psychotic event, MDD with psychotic features -Currently Lyme antibodies are positive and Rocephin has been started for treatment of possible Lyme encephalitis, however, this would be an abnormal presentation -MRI ordered, but pre-MRI clearance unable to be adequately done by --> orbit x-ray ordered to rule out any previous metal foreign bodies -Patient does admit to claustrophobia and states that she would need to be sedated in order to have it done -Attempt to give 1 mg of Ativan prior to MRI of brain -Psychiatric consultation placed, appreciate recommendations: 1. Continue monitoring of mood and psychotic symptoms. 2. Continue treatment for general medical conditions as prescribed by primary team. 3. Start B12 supplementation. 4. May use Zyprexa Zydis to 2.5 mg twice a day as needed for agitated psychosis. Not to exceed 5 mg in 24 hours. 5. Avoid the use of other medications with anticholinergic or sedative effect. 6. Continue one-to-one observation. 7. Psychiatry will continue to follow up. -ALCON pending to look into ALCON associated encephalitis -Ideally lumbar puncture would be useful in diagnostic workup, however, patient unlikely to be willing to do so (2) Encounter for assessment of decision-making capacity: Plan: Patient lacks any insight into her current medical condition therefore does not currently have the caacity to leave against medical advice (3) Hypokalemia: Plan: -Secondary to poor p.o. intake -Improved to 3.6 on 02/13/2024 (4) Anxiety: Plan: Continue citalopram (5) Hypertension: Plan: Continue amlodipine Plan VTE Prophyalxis - low risk, encourage ambulation Diet - regular Disposition - observation to med/surg CODE STATUS: Full code Admission and Anticipated Discharge Date Admission Date: February 12, 2024 Supervising Physician Co-Signing Physician Notes ATTESTATION I also saw the patient and confirmed martinez portions of the history and exam. I agree with the impression and plan in the resident documentation, and as summarized below. Upon our morning exam, the patient is without complaints. She tells us that she needs to work on some things spiritually; when I asked her to expand on this, she declines. Just prior to seen the patient, I was able to speak with the in the hallway. He confirmed the history as delineated in the H&P and in the resident note. EXAM 160/88, 72, 18, 36.7, 99% on room air Heart is regular rhythm, slightly tachycardic Respirations are nonlabored DATA Labs CBC is unremarkable BUN 10, creatinine 0.55 Preliminary Lyme IgM/IgG positive Imaging Head CT completed 02/12/2024 shows no acute process. Micro Urine culture collected 02/12/2024 shows contamination with mixed skin ayde IMPRESSION & PLAN Acute psychoses with hallucination Major depressive disorder Insomnia Appreciate psychiatric consultation MRI brain today if she will allow She previously declined LP; may need to rediscuss tomorrow Agree with Rocephin pending preliminary Lyme result, although unsure if this explains her symptoms Additional per resident documentation Subjective Patient seen at bedside this morning. No acute events reported overnight. Patient states that she is here because "everyone thinks that she is crazy". Patient continues to believe that she has and does not want to have any unnecessary testing done that may affect her . She states that she is having a spiritual cleansing and that she speaks to God. She states that she is okay with getting a workup in general examination, however, she feels that her insight relating to her feelings of speaking to a deity is warranted. She is alert and oriented to person place and time. She is able to provide me her birthday as well as other objective data including the current president, where we are currently, and her place of work. Denies any joint pain at this time. Does admit to occasional headache but none currently. No other complaints at this time. Review of Systems Review of Systems: All systems reviewed & are unremarkable except as noted in HPI & below Physical Exam Constitutional: well developed and well nourished Eyes: + anicteric sclerae Neck: trachea midline, no thyromegaly Respiratory: normal respiratory effort, lungs clear to auscultation Cardiovascular: RRR, no murmur, no edema Gastrointestinal (Abdomen): normal bowel sounds, soft, nontender, no hepatosplenomegaly Skin: no rashes, warm and dry Neurologic: moves all extremities Psychiatric: A+Ox3, euthymic affect Thought Content: + paranoid and + delusions Suicidal Thoughts: denies suicidal thoughts Homicidal Thoughts: denies homicidal thoughts Hallucinations: + auditory hallucinations
--- NOTE | 2024-02-13 22:25 | Electrocardiogram Report ---
Test Reason : Blood Pressure : / mmHG Vent. Rate : 087 BPM Atrial Rate : 087 BPM P-R Int : 158 ms QRS Dur : 084 ms QT Int : 408 ms P-R-T Axes : 000 232 179 degrees QTc Int : 490 ms Normal sinus rhythm Cannot exclude arm lead reversal Right ventricular hypertrophy Possible Anterolateral infarct , age undetermined T wave abnormality, consider inferior ischemia Abnormal ECG No previous ECGs available Confirmed by Jeffrey Perkins ([id number]) on 02/13/2024 10:25:37 PM Referred By: REFERRED SELF Confirmed By:Jeffrey Perkins
[2024-02-14 07:17] LABS: Hematocrit (blood only) 38.5 % (37.0-47.0); Mean Corpuscular Hemoglobin 29.5 pg (25.0-34.0); Mean Corpuscular Hgb Conc 33.8 g/dL (32.0-36.0); Mean Corpuscular Volume 87.3 fL (80.0-100.0); Mean Platelet Volume 10.2 fL (9.4-12.4); Platelet Count 182 K/uL (130-400); RDW Coefficient of Variation 12.2 % (11.5-14.5); RDW Standard Deviation 39.2 fL (36.4-46.3); Red Blood Count 4.41 M/uL (4.20-5.40); White Blood Count 5.26 K/ul (4.8-10.8)
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
[2024-02-14 07:36] LABS: Alanine Aminotransferase 13 U/L (7-52); Albumin Globulin Ratio 1.6 (0.9-2); Albumin Level 4.1 gm/dl (3.4-5.0); Alkaline Phosphatase 52 U/L (34-104); Anion Gap 7 (3-11); Aspartate Aminotransferase 13 U/L (13-39); BUN Creatinine Ratio 18.9 (10-20); Bilirubin,Total 0.5 mg/dl (0.2-1.0); Blood Urea Nitrogen 10 mg/dl (6-23); Calcium 9.8 mg/dl (8.6-10.3); Carbon Dioxide 29 mmol/L (21-32); Chloride 107 mmol/L (98-107); Est GFR (African American) 119.6 ml/min; Est GFR (Non-African American) 103.2 ml/min; Globulin 2.6 gm/dl (2.5-4.0); Glucose 107 mg/dl (70-99(Fasting)); Potassium 2.9 mmol/L (3.5-5.1); Sodium 143 mmol/L (136-145); Total Protein 6.7 gm/dl (6.0-8.3)
[2024-02-14] MEDS: CYANOCOBALAMIN (B-12) 500 MCG TABLET PO SCH (08:43)
[2024-02-14] MEDS: POTASSIUM CHLORIDE CRTAB 20 MEQ TABCR PO STA (14:20)
--- NOTE | 2024-02-14 14:35 | Progress Note ---
Date of Service February 14, 2024 Assessment & Plan Admission and Anticipated Discharge Date Admission Date: February 14, 2024 Results & Data Vital Signs (Past 12 Hours) Vital Signs Temp Pulse Resp BP Pulse Ox O2 Del Method 02/14/24 08:33 36.5 C 84 16 167/95 H 97 Room Air
[2024-02-14] MEDS: LORazepam 1 MG in SYRINGE 0.5 ML IV STA ×2 (15:42→17:30)
[2024-02-14] MEDS: PROCHLORPERAZINE 5 MG in SYRINGE 4 ML IV ONE (16:44)
[2024-02-14] MEDS: LORazepam 1 MG in SYRINGE 0.5 ML IV PRN (16:45)
--- NOTE | 2024-02-14 16:58 | Billing Data ---
Date of Service February 14, 2024 Coding Level of Care Code 94703 SUB INP/OBS CARE
--- NOTE | 2024-02-14 19:27 | Psychiatric Progress Note ---
Date of Service February 14, 2024 Impression / Recommendations Impression Patient is a 58-year-old with a psychiatric history of bereavement and depression. No history of psychosis. Admitted for an psychotic episode with paranoia, and delusions (muslim paranoid and somatic themes). This episode occurred in the context of some somatic complaints that include headaches difficulties with memory and attention word-finding, tinnitus, etc. And recent positive results for Lyme's disease and proteinuria. Patient is receiving vitamin B12 supplementation and has agreed to have an MRI of the brain. She has not required PRN OLZ. (1) Unspecified psychosis not due to a substance or known physiological condition: (2) Acute psychosis: Plan 02/14/24: 1. Start Depakote DR 250mg po QHS 2. Continue treatment for general medical conditions as prescribed by primary team. 3. Continue monitoring of mood and psychotic symptoms.. 4. May use Zyprexa Zydis to 2.5 mg twice a day as needed for agitated psychosis. Not to exceed 5 mg in 24 hours. 5. Continue one-to-one observation. 7. Psychiatry will continue to follow up. 02/13/24: 1. Continue monitoring of mood and psychotic symptoms. 2. Continue treatment for general medical conditions as prescribed by primary team. 3. Start B12 supplementation. 4. May use Zyprexa Zydis to 2.5 mg twice a day as needed for agitated psychosis. Not to exceed 5 mg in 24 hours. 5. Avoid the use of other medications with anticholinergic or sedative effect. 6. Continue one-to-one observation. 7. Psychiatry will continue to follow up. Interval History Chief Complaint "[]". Review of Systems Notes I met with the patient for follow-up evaluation and later discussed the case with primary team. During the interview the patient was laying in bed in the position. She appeared tearful. Reported she was feeling scared. The patient indicated she has fears related to her health. She is concerned about the need for staying in the hospital, believes that staying in the hospital is an indication that she is suffering from a terminal condition. Although the patient strongly believes that this, she was receptive to some reassurance about the appropriateness of the admission and recommended studies and treatment plan. She continues to complain of headaches. When asked if she was taking [id number] vitamins like vitamin A, the patient stated that she was taking vitamins but was unable to provide information regarding which vitamins she was taking at home. We discussed a trial of low-dose Depakote to help with her mood. This medication can also help with the headache. Patient was educated about the rationale for recommending this medication, and agreed with the plan. Subjective Subjective Patient was seen & assessed and interval progress reviewed with [treatment team] [nursing and social work] Physical Exam Psychiatric Orientation: alert and oriented x 3 Apperance: appropriately dressed Eye Contact: good eye contact Motor Behavior: n tremor Speech: normal rate/rhythm/volume of speech Affect: + depressed affect, + anxious affect, + tearful affect and + labile affect Mood: + depressed mood and + anxious mood Thought Process: + looseness of associations, + confabulations and + concrete thought process Thought Content: + preoccupation, + paranoid and + delusions Suicidal Thoughts: denies suicidal thoughts Homicidal Thoughts: denies homicidal thoughts Hallucinations: + auditory hallucinations Cognition: recent memory grossly intact; + attention not intact Estimated Intelligence: consistent with education level Insight: + impaired insight Judgment: + impaired judgement Vital Signs (Past 24 Hours) Last Vital Signs Temp 37.0 C 02/14/24 15:01 Pulse 73 02/14/24 15:01 Resp 16 02/14/24 15:01 BP 164/96 H 02/14/24 15:01 Pulse Ox 99 02/14/24 15:01 O2 Del Method Room Air 02/14/24 15:01 Results & Data ([facility]) Laboratory Results Laboratory Results - last 24 hr 02/14/24 06:11 WBC 5.26 RBC 4.41 Hgb 13.0 Hct 38.5 MCV 87.3 MCH 29.5 MCHC 33.8 RDW Std Deviation 39.2 RDW Coeff of Joshua 12.2 Plt Count 182 MPV 10.2 Sodium 143 Potassium 2.9 L Chloride 107 Carbon Dioxide 29 Anion Gap 7 BUN 10 Creatinine 0.53 L Est Cr Clr Drug Dosing Pending Est GFR ( Amer) 119.6 Est GFR (Non-Af Amer) 103.2 BUN/Creatinine Ratio 18.9 Glucose 107 H Calcium 9.8 Total Bilirubin 0.5 AST 13 ALT 13 Alkaline Phosphatase 52 Total Protein 6.7 Albumin 4.1 Globulin 2.6 Albumin/Globulin Ratio 1.6 Current Inpatient Medications Current Inpatient Medications: Current Inpatient Medications Acetaminophen (Acetaminophen 325 Mg Tab) 650 mg PO Q4H PRN PRN Reason: pain/fever Stop: 03/13/24 21:33 Last Admin: 02/13/24 22:00 Dose: 650 mg Amlodipine Besylate (Amlodipine Besylate 5 Mg Tab) 10 mg PO DAILY [facility] Stop: 03/14/24 08:59 Last Admin: 02/14/24 08:43 Dose: 10 mg Citalopram Hydrobromide (Citalopram 20 Mg Tab) 20 mg PO DAILY [facility] Stop: 03/14/24 08:59 Last Admin: 02/14/24 08:43 Dose: 20 mg Cyanocobalamin (Cyanocobalamin (B-12) 500 Mcg Tablet) 1,000 mcg PO QAM [facility] Stop: 03/15/24 08:59 Last Admin: 02/14/24 08:43 Dose: 1,000 mcg Ceftriaxone Sodium 2,000 mg/ (Dextrose) 50 mls @ 100 mls/hr IV Q24H [facility]; Protocol Stop: 02/22/24 21:59 Last Infusion: 02/13/24 22:01 Dose: Infused
--- NOTE | 2024-02-15 06:50 | Hospitalist Progress Note ---
Date of Service February 15, 2024 Assessment & Plan (1) Acute psychosis: Plan: Suspected auditory hallucinations - God/Mc, parents talking to her. Although she is restorationist this is unusual for her. Delusions of Jealousy ( being with other women) and somatic (feels she has a brain tumor and she is going to , says she is ). No prior episodes and appears to be reasonable acutely progressive over 6 weeks but much worse the days leading up to admission. She seems to be improving, but it is unclear whether she is actually improving vs strategically not disclosing her symptoms to the clinical care team. 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 LP will be done as well. -Patient does admit to claustrophobia and states that she would need to be sedated in order to have it done -Continue following psych recommendations -ALCON pending to look into ALCON associated encephalitis (2) Encounter for assessment of decision-making capacity: Plan: Patient lacks any insight into her current medical condition therefore does not currently have the capacity to leave against medical advice (3) Anxiety: Plan: Continue citalopram (4) Hypertension: Plan: Continue amlodipine Plan VTE Prophyalxis - low risk, encourage ambulation Diet - regular Disposition - observation to med/surg CODE STATUS: Full code Admission and Anticipated Discharge Date Admission Date: February 14, 2024 Supervising Physician Co-Signing Physician Notes I personally examined the patient and verified all martinez points of history and exam, discussed case, and agree with decision making with Ventura Kelly MS2 Feeling better. Headache better. notes that she is acting much more like herself as well. Was unable to have MRI yesterday despite significant dosing of Ativan due to inadequate sedation for her severity of claustrophobia. She is willing to have MRI and LPjust feels that she needs to be adequately sedated. Discussed with anesthesiology, resident physician coordinated with radiologyand fortunately the plan appears to have come together for her to have MRI and lumbar puncture under sedation tomorrow. Patient and agreed to this plan. IMPRESSION & PLAN Acute psychoses with hallucination Major depressive disorder Insomnia Appreciate psychiatric consultation For MRI and LP tomorrow. Seems to be improving. Is not clear if there is a true improvement or waxing and waning at this early juncture; at the same time if it is improving, it is possible that this was ORDER PULLER Lyme and the ceftriaxone is helping. Certainly given that psychiatry does not believe this to be a primary psychiatric disorder, we will want to have the detailed medical workup to rule out other offending possibilities before concluding that this was ORDER PULLER Lyme. otherwise as above Subjective 02/14: She says she is feeling good today, is working through some personal problems and would like to keep them to herself this time. Ativan was trialed yesterday, but patient was still teary about the MRI, thus the MRI was not done. She again mentioned wanting to be knocked out in order to do the MRI. Wants present to walk her to the MRI room. Continues to say strange things, but 1:1 wasnt sure what exactly was said. She did cheek her meds yesterday, nursing team thinks it was the amlodipine and Celexa. She slept through the night again, no auditory/visual hallucinations that she reported. Is having on and off left lower quadrant pain, which has been present for the past 3 weeks. was present when patient was rounded on, he feels that she has been improving since her admission. Review of Systems Review of Systems: As noted in HPI Physical Exam Physical Exam: General: Does not appear in any acute distress. AxO4. Cardiovascular: Regular rate and rhythm. S1 and S2 sounds present. No murmurs, rubs, or gallops. Respiratory: Clear to auscultation bilaterally. No rales, wheezing, or rhonchi. GI: Normoactive bowel sounds. No masses appreciated on palpation. MSK: No edema visualized on extremities. MSE: No tics psychomotor agitations, tremors noted. Well-groomed, dressed in her own clothes. Able to follow commands and maintain eye contact. Alert and oriented to person, place, president, and year. Normal rate of speech, soft volume. Memory: appropriate short-term recall. Cognition: abstract thinking intact. Results & Data Results & Data Vital Signs (Past 12 Hours) Vital Signs Temp Pulse Resp BP Pulse Ox O2 Del Method 02/14/24 21:55 36.7 C 76 14 124/80 98 Room Air
[2024-02-15 08:46] LABS: Anion Gap 6 (3-11); BUN Creatinine Ratio 23.4 (10-20); Blood Urea Nitrogen 15 mg/dl (6-23); Calcium 10.2 mg/dl (8.6-10.3); Carbon Dioxide 30 mmol/L (21-32); Chloride 106 mmol/L (98-107); Est GFR (African American) 112.4 ml/min; Glucose 140 mg/dl (70-99(Fasting)); Potassium 3.5 mmol/L (3.5-5.1); Sodium 142 mmol/L (136-145)
[2024-02-15 14:03] LABS: Anti Nuclear Antibody Screen POSITIVE (NEGATIVE)
--- NOTE | 2024-02-15 14:39 | Anesthesiology Consultation ---
Date of Service February 15, 2024 Assessment & Plan (1) Encounter for pre-operative examination: Chart Review Chart Review: Acceptable Risk for Surgery History Surgery Operation Date: 02/16/24 12:30 Proposed Procedures p #2 Brain MRI with Anesthesia Sedation - Elkin Teran DO s #1 Lumbar Puncture with Anesthesia - Tano Craig PA-C Height/Weight Weight: 65.2 kg Allergies Allergy/AdvReac Type Severity Reaction Status Date / Time NSAIDS (Non-Steroidal Allergy Intermediate asthma Verified 07/27/23 14:44 Anti-Inflamma attack Medications Home Medications Medication Instructions Recorded Confirmed Last Taken amlodipine 10 mg tablet 10 mg PO DAILY #90 tabs 02/04/23 02/12/24 Unknown citalopram 20 mg tablet 20 mg PO DAILY #90 tabs 02/04/23 02/12/24 Unknown Active Medications Generic Name Dose Route Start Last Admin Trade Name Freq PRN Reason Stop Dose Admin Acetaminophen 650 mg 02/12/24 21:34 02/13/24 22:00 Acetaminophen 325 Mg Tab PO 03/13/24 21:33 650 mg Q4H PRN Administration pain/fever Amlodipine Besylate 10 mg 02/13/24 09:00 02/15/24 08:13 Amlodipine Besylate 5 Mg Tab PO 03/14/24 08:59 10 mg DAILY DERRICK Administration Citalopram Hydrobromide 20 mg 02/13/24 09:00 02/15/24 08:13 Citalopram 20 Mg Tab PO 03/14/24 08:59 20 mg DAILY DERRICK Administration Cyanocobalamin 1,000 mcg 02/14/24 09:00 02/15/24 08:13 Cyanocobalamin (B-12) 500 Mcg Tablet PO 03/15/24 08:59 1,000 mcg QAM DERRICK Administration Ceftriaxone Sodium 2,000 mg/ 50 mls @ 100 mls/hr 02/12/24 22:00 02/14/24 23:10 Dextrose IV 02/22/24 21:59 Infused Q24H [facility] Infusion Protocol Past Medical History Medical History (Updated 02/15/24 @ 14:39 by Turner Be MD) Unspecified psychosis not due to a substance or known physiological condition Mood disorder Migraine headache GERD (gastroesophageal reflux disease) NO MEDS Depression Migraine Kidney stones Hypertension Asthma NO INHALERS- NO PROBLEM FOR YRS Muscle spasm Past Surgical History Surgical History History of esophagogastroduodenoscopy (EGD) History of colonoscopy History of bowel resection 18 YRS AGO H/O: hysterectomy History of appendectomy Social History Smoking Status: Never smoker Do You Dip or Chew Tobacco: No Hx Alcohol Use: No Hx Substance Use: No substance use type: does not use Physical Exam Vital Signs Last Vital Signs Temp 36.5 C 02/15/24 07:29 Pulse 75 02/15/24 07:29 Resp 18 02/15/24 07:29 BP 145/82 H 02/15/24 07:29 Pulse Ox 98 02/15/24 07:29 O2 Del Method Room Air 02/15/24 07:29 Testing Laboratory Results 02/14/24 06:11 02/15/24 07:49 Urine Color Dark Yellow 02/12/24 13:35 Urine Appearance Cloudy (Clear) A 02/12/24 13:35 Urine pH 5.5 (4.5-7.5) 02/12/24 13:35 Ur Specific J[place] 1.032 (1.000-1.030) H 02/12/24 13:35 Urine Protein 2+ (Negative) H 02/12/24 13:35 Urine Glucose (UA) Negative (Negative) 02/12/24 13:35 Urine Ketones 4+ (Negative) H 02/12/24 13:35 Urine Nitrite Negative (Negative) 02/12/24 13:35 Ur Leukocyte Esterase Negative (Negative) 02/12/24 13:35 Urine WBC (Auto) 0-5 /hpf (0-5) 02/12/24 13:35 Urine RBC (Auto) 0-2 /hpf (0-2) 02/12/24 13:35 U Hyaline Cast (Auto) 3-5 /lpf (0-2) H 02/12/24 13:35 U Epithel Cells (Auto) 6-10 /hpf (0-2) H 02/12/24 13:35 Urine Bacteria (Auto) 1+ (None Seen) H 02/12/24 13:35 02/12/24 13:35 Urine Culture - Final Urine,Clean Catch More than three types of organisms present, all high counts mixed probable skin ayde - No further identifications or sensitivities to follow. Electrocardiogram Date: 02/12/24 Findings: + NSR @ (87) and + NSST changes
--- NOTE | 2024-02-15 15:55 | Psychiatric Progress Note ---
Date of Service February 15, 2024 Impression / Recommendations Impression Patient is a 58-year-old with a psychiatric history of bereavement and depression. No history of psychosis. Admitted for an psychotic episode with paranoia, and delusions (buddhist paranoid and somatic themes). This episode occurred in the context of some somatic complaints that include headaches difficulties with memory and attention word-finding, tinnitus, etc. And recent positive results for Lyme's disease and proteinuria. Patient is receiving vitamin B12 supplementation and has agreed to have an MRI of the brain. Patient has not received Olanzapine nor Depakote and is showing some improvement. Overall, I spent a total of 25 minutes with this case, including review of chart,direct evaluation of the patient,and documentation.] (1) Unspecified psychosis not due to a substance or known physiological condition: (2) Acute psychosis: Plan 02/15/24: 1. Depakote DR 250mg po QHS, may not be needed. Continue in case headaches con tinue. Discontinue if amonia level increases. 2. Continue treatment for general medical conditions as prescribed by primary team. 3. Continue monitoring of mood and psychotic symptoms. 4. May use Zyprexa Zydis to 2.5 mg twice a day as needed for agitated psychosis. Not to exceed 5 mg in 24 hours. 5. Discontinue one-to-one observation after MRI is completed 7. Psychiatry will continue to follow up. 02/14/24: 1. Start Depakote DR 250mg po QHS 2. Continue treatment for general medical conditions as prescribed by primary team. 3. Continue monitoring of mood and psychotic symptoms.. 4. May use Zyprexa Zydis to 2.5 mg twice a day as needed for agitated psychosis. Not to exceed 5 mg in 24 hours. 5. Continue one-to-one observation. 7. Psychiatry will continue to follow up. 02/13/24: 1. Continue monitoring of mood and psychotic symptoms. 2. Continue treatment for general medical conditions as prescribed by primary team. 3. Start B12 supplementation. 4. May use Zyprexa Zydis to 2.5 mg twice a day as needed for agitated psychosis. Not to exceed 5 mg in 24 hours. 5. Avoid the use of other medications with anticholinergic or sedative effect. 6. Continue one-to-one observation. 7. Psychiatry will continue to follow up. Interval History Chief Complaint "I fell a lot better". Subjective Subjective Patient was seen & assessed and interval progress reviewed. Patient evaluated in the company of the psychiatric liaison nurse. Patient was seated at the side table eating lunch. She recognized me and greeted me with an ampl smile. She indicated that she was feeling better today. Still agreeable to get the MRI done even though the headache was not present at the moment. When asked if she remembered some of the thoughts she had when she arrived at the hospital, like being , she smiled and dismissed them as illogical. Patient did not engage in extended conversation and did not elaborate about her current thoughts. She is still somewhat guarded but showing some progress. She denied feeling depressed. She has not attempted to elope, seems to understand the need to complete the treatment and is not showing agitation or violent behavior. Procedures Performed Operation Date: 02/16/24 12:30 <No data on this case meets the specified criteria> Physical Exam Psychiatric A+Ox3, euthymic affect Orientation: alert and oriented x 3 Apperance: appropriately dressed Eye Contact: good eye contact and + fair eye contact Motor Behavior: no abnormal motor movements and + psychomotor retardation; n tremor Speech: normal rate/rhythm/volume of speech Affect: euthymic affect; no depressed affect, no anxious affect and no tearful affect Mood: no depressed mood and no anxious mood Thought Process: + concrete thought process Thought Content: + delusions Suicidal Thoughts: denies suicidal thoughts Homicidal Thoughts: denies homicidal thoughts Hallucinations: no auditory hallucinations Cognition: recent memory grossly intact and attention grossly intact Estimated Intelligence: consistent with education level Insight: + fair insight Judgment: + fair judgement Vital Signs (Past 24 Hours) Last Vital Signs Temp 36.7 C 02/15/24 15:28 Pulse 77 02/15/24 15:28 Resp 20 02/15/24 15:28 BP 164/78 H 02/15/24 15:28 Pulse Ox 98 02/15/24 15:28 O2 Del Method Room Air 02/15/24 15:28 Results & Data ([facility]) Laboratory Results Laboratory Results - last 24 hr 02/13/24 02/15/24 07:47 07:49 Sodium 142 Potassium 3.5 D Chloride 106 Carbon Dioxide 30 Anion Gap 6 BUN 15 Creatinine 0.64 Est Cr Clr Drug Dosing Not Reportable Est GFR ( Amer) 112.4 Est GFR (Non-Af Amer) 97.0 BUN/Creatinine Ratio 23.4 H Glucose 140 H Calcium 10.2 ALCON Screen POSITIVE A Current Inpatient Medications Current Inpatient Medications: Current Inpatient Medications Acetaminophen (Acetaminophen 325 Mg Tab) 650 mg PO Q4H PRN PRN Reason: pain/fever Stop: 03/13/24 21:33 Last Admin: 02/13/24 22:00 Dose: 650 mg Amlodipine Besylate (Amlodipine Besylate 5 Mg Tab) 10 mg PO DAILY DERRICK Stop: 03/14/24 08:59 Last Admin: 02/15/24 08:13 Dose: 10 mg Citalopram Hydrobromide (Citalopram 20 Mg Tab) 20 mg PO DAILY DERRICK Stop: 03/14/24 08:59 Last Admin: 02/15/24 08:13 Dose: 20 mg Cyanocobalamin (Cyanocobalamin (B-12) 500 Mcg Tablet) 1,000 mcg PO QAM DERRICK Stop: 03/15/24 08:59 Last Admin: 02/15/24 08:13 Dose: 1,000 mcg Divalproex Sodium (Divalproex Delay Release 250 Mg Tabec) 250 mg PO HS DERRICK Stop: 03/16/24 20:59 Ceftriaxone Sodium 2,000 mg/ (Dextrose) 50 mls @ 100 mls/hr IV Q24H [facility]; Protocol Stop: 02/22/24 21:59 Last Infusion: 02/14/24 23:10 Dose: Infused
[2024-02-15 18:25] LABS: ANA Pattern Cytoplasmic
--- NOTE | 2024-02-15 18:29 | Billing Data ---
Date of Service February 15, 2024 Coding Level of Care Code 63851 SUB INP/OBS CARE
[2024-02-15] MEDS: DIVALPROEX DELAY RELEASE 250 MG TABEC PO SCH (22:05)
[2024-02-16 06:15] LABS: Hematocrit (blood only) 38.2 % (37.0-47.0); Hemoglobin 12.7 g/dl (12.0-16.0); Mean Corpuscular Hemoglobin 29.7 pg (25.0-34.0); Mean Corpuscular Hgb Conc 33.2 g/dL (32.0-36.0); Mean Corpuscular Volume 89.3 fL (80.0-100.0); Mean Platelet Volume 10.1 fL (9.4-12.4); Platelet Count 183 K/uL (130-400); RDW Coefficient of Variation 12.3 % (11.5-14.5); RDW Standard Deviation 39.9 fL (36.4-46.3); Red Blood Count 4.28 M/uL (4.20-5.40); White Blood Count 6.16 K/ul (4.8-10.8)
[2024-02-16 06:34] LABS: Anion Gap 6 (3-11); BUN Creatinine Ratio 23.1 (10-20); Blood Urea Nitrogen 15 mg/dl (6-23); Calcium 9.4 mg/dl (8.6-10.3); Carbon Dioxide 31 mmol/L (21-32); Chloride 105 mmol/L (98-107); Est GFR (African American) 111.8 ml/min; Est GFR (Non-African American) 96.5 ml/min; Glucose 101 mg/dl (70-99(Fasting)); Potassium 3.6 mmol/L (3.5-5.1); Sodium 142 mmol/L (136-145)
--- NOTE | 2024-02-16 07:50 | Hospitalist Progress Note ---
"Date of Service February 16, 2024 Assessment & Plan (1) Acute psychosis: Plan: Auditory Hallucination | Acute Psychosis - Presentation w/ hallucinations of God/Mc, relatives, having a brain tumor, and personal/family member's being - Progressed over the last 6 weeks, but most acutely 2-3 days prior to admission Multiple possible etiologies from history: 1) Insomnia - extended period of interrupted/insufficient sleep 2) -D-r-u-g-s- - Diphenhydramine, Excedrin, withdrawal from citalopram 3) Infective - encephalitis, lyme 4) -A-s-r-u-z-t-m-u-n-e- - prior ALCON positive, encephalitis 5) -R-a-d-p-u-d-i-o-n-a-l- - recent diet changes, starvation ketosis, vitamin deficiencies 6) Psychiatric - longstanding anxiety, psychotic event, MDD with psychotic features - Received MRI/LP under general anesthesia today - MRI negative - Full CSF results pending - Rocephin ongoing for potential Lyme (IgG and IgM positive, bands pending), 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, CSF studies pending - Psychiatry following, appreciate recommendations: Added Depakote and B12 supplementation, Zyprexa 2.5 mg BID for agitated psychosis - ALCON remains elevated, but unchanged from prior, MRI & preliminary CSF w/o changes consistent with autoimmune etiology - Continue to suspect acute psychosis (2) Encounter for assessment of decision-making capacity: Plan: Patient currently AO x 4 with insight (3) Hypokalemia: Plan: - Resolved, continue to follow (4) Anxiety: Plan: Continue citalopram (5) Hypertension: Plan: Continue amlodipine Plan VTE Prophyalxis - low risk, encourage ambulation Diet - Regular Disposition - Med/Surg CODE STATUS: Full code Admission and Anticipated Discharge Date Admission Date: February 14, 2024 Supervising Physician Co-Signing Physician Notes I personally examined the patient and verified all martinez points of history and exam, discussed case, and agree with decision making with Dr Meier Feeling better overall. MRI and LP went well. Updated and patient to the best of my ability. Vitals noted, in general she is awake and alert pleasant no distress. HEENT normocephalic atraumatic mucous membranes moist. Breathing unlabored no accessory muscle use good effort. Skin without rashes pallor or icterus. IMPRESSION & PLAN Acute psychoses with hallucination Major depressive disorder Insomnia Appreciate psychiatric consultation MRI and initial studies on LP reassuringobviously multiple send out studies on LP pending. In discussion with psychiatrywould like to obtain EEG to rule out temporal lobe epilepsy. Is not clear if there is a true improvement or waxing and waning at this early juncture; at the same time if it is improving, it is possible that this was [employer] Lyme and the ceftriaxone is helping. Certainly given that psychiatry does not believe this to be a primary psychiatric disorder, in the end if we rule out other offending possibilities we could eventually arrive at the conclusion that this was [employer] Lyme. otherwise as above Subjective 02/15: Patient notes she is feeling better. She notes that she was awake some of the night due to anxiety regarding her procedure today. Patient was able to more freely discuss the events of her admission today. She is no longer having thoughts about being or her nieces being . She also notes that she was on a spiritual journey prior to admission, and that she has reconciled those problems and is feeling much better about them - thought she was not willing to elaborate further. Patient further denied any chest pain, dyspnea, abdominal pain, nausea or vomiting. She is not experiencing any headaches, vision changes, or hallucinations. She continues to endorse a good appetite. Patient feels like she has been improving over the last few days. Physical Exam Physical Exam: General: NAD, pleasant, AO x 4 (w/ situational awareness) Cardiovascular: RRR, normal S1/S2. No murmurs, rubs, or gallops. Respiratory: Clear to auscultation bilaterally. No rales, wheezing, or rhonchi. Non-labored. GI: Normoactive bowel sounds. No masses appreciated on palpation. MSK: No edema visualized on extremities. Skin: No rashes, lesions, or erythema Results & Data Results & Data Vital Signs (Past 12 Hours) Vital Signs Temp Pulse Resp BP Pulse Ox O2 Del Method 02/16/24 07:35 36.7 C 69 18 156/90 H 97 Room Air Resident Activity Tracking Resident Involvement: Resident Care Provided Care Provided: Adult [facility] Medicine"
--- NOTE | 2024-02-16 09:48 | Psychiatric Progress Note ---
Date of Service February 16, 2024 Impression / Recommendations Impression Patient is a 58-year-old with a psychiatric history of bereavement and depression. No prior history of psychosis. Admitted for an psychotic episode with paranoia, and delusions (judaism paranoid and somatic themes). This episode occurred in the context of some somatic complaints that include headaches difficulties with memory and attention word-finding, tinnitus, positive results for Lyme's disease, and proteinuria. Her blood pressure has been consistently elevated since the evening of February 11. MRI is pending. Patient was not as cheerful as yesterday. Complained of anxiety and insomnia. Her subjective sensation of anxiety me be heightened by the bodily sensations that accompany the BP elevation. She received Depakote 250 mg last night which did not appear to sedate her.she denied side effects from the medication and is willing to increase the dose to 500mg HS. If no changes with Depakote, may try Olanzapine. Patient has not received Olanzapine PRN (no agitation). Will leave OLZ as second choice due to concerns about cardiovascular risk and metabolic side effects. Overall, I spent a total of 30 minutes with this case, including review of chart,direct evaluation of the patient,and documentation.] (1) Unspecified psychosis not due to a substance or known physiological condition: (2) Acute psychosis: Plan 02/16/24: 1. Consider increasing Depakote DR to 500mg po QHS. Patient agreed to try a higher dose. 2. Continue treatment for general medical conditions as prescribed by primary team. 3. Continue monitoring of mood and psychotic symptoms. 4. May use Zyprexa Zydis to 2.5 mg twice a day as needed for agitated psychosis. Not to exceed 5 mg in 24 hours. 5. Discontinue one-to-one observation after MRI is completed 7. Psychiatry will continue to follow up. 02/15/24: 1. Depakote DR 250mg po QHS, may not be needed. Continue in case headaches continue. Discontinue if amonia level increases. 2. Continue treatment for general medical conditions as prescribed by primary team. 3. Continue monitoring of mood and psychotic symptoms. 4. May use Zyprexa Zydis to 2.5 mg twice a day as needed for agitated psychosis. Not to exceed 5 mg in 24 hours. 5. Discontinue one-to-one observation after MRI is completed 7. Psychiatry will continue to follow up. 4/22/24: 1. Start Depakote DR 250mg po QHS 2. Continue treatment for general medical conditions as prescribed by primary team. 3. Continue monitoring of mood and psychotic symptoms.. 4. May use Zyprexa Zydis to 2.5 mg twice a day as needed for agitated psychos is. Not to exceed 5 mg in 24 hours. 5. Continue one-to-one observation. 7. Psychiatry will continue to follow up. 02/13/24: 1. Continue monitoring of mood and psychotic symptoms. 2. Continue treatment for general medical conditions as prescribed by primary team. 3. Start B12 supplementation. 4. May use Zyprexa Zydis to 2.5 mg twice a day as needed for agitated psychosis. Not to exceed 5 mg in 24 hours. 5. Avoid the use of other medications with anticholinergic or sedative effect. 6. Continue one-to-one observation. 7. Psychiatry will continue to follow up. Suicide Risk Level Suicide Risk Level: Low (q15 min observation checks) Interval History Chief Complaint "I didn't sleep last night". Subjective Subjective Patient was seen & assessed and interval progress reviewed.Patient evaluated at bedside. 1: 1 sitter outside the door. Patient was calm and cooperative. She denied side effects from the initial dose of Depakote last night. Reported that she is still having headaches. When asked about her mood stated that her mood has improved. She is no longer holding the believes of being . When asked about the origin of those thoughts patient reported that she has horses that she is hoping will get and that "may have been in my mind at the time" She still holds some concerns about family relationships and some judaism beliefs about going through "a spiritual journey" however she is unwilling to elaborate about either topic. During our conversation today patient stated that for the last 2 months she has been having difficulty sleeping, some nights not sleeping at all. She described laying in bed with eyes wide open but denied having racing thoughts, ruminations, or worries. She denied feeling overly energized when unable to fall asleep. Patient indicated that along with the difficulty falling asleep she typically experiences some body sensations: Eye twitching, involuntary tongue movement, lip twitching, headaches, a sensation of being "under water." There is no visible involuntary movement at the time of this interview. She denied suicidal or homicidal ideation, plan, or intent. Procedures Performed Operation Date: 02/16/24 12:30 <No data on this case meets the specified criteria> Physical Exam Psychiatric Orientation: alert and oriented x 3 Apperance: appropriately dressed and appropriately groomed Eye Contact: good eye contact Motor Behavior: no abnormal motor movements Speech: normal rate/rhythm/volume of speech Affect: + constricted affect Mood: + anxious mood Thought Process: goal directed thought process Thought Content: + delusions (overvalued ideas. ) Suicidal Thoughts: denies suicidal thoughts Homicidal Thoughts: denies homicidal thoughts Hallucinations: no auditory hallucinations Insight: + limited insight Judgment: + fair judgement Vital Signs (Past 24 Hours) Last Vital Signs Temp 36.7 C 02/16/24 07:35 Pulse 69 02/16/24 07:35 Resp 18 02/16/24 07:35 BP 156/90 H 02/16/24 07:35 Pulse Ox 97 02/16/24 07:35 O2 Del Method Room Air 02/16/24 07:35 Results & Data ([facility]) Laboratory Results Laboratory Results - last 24 hr 02/13/24 02/16/24 07:47 05:35 WBC 6.16 RBC 4.28 Hgb 12.7 Hct 38.2 MCV 89.3 MCH 29.7 MCHC 33.2 RDW Std Deviation 39.9 RDW Coeff of Joshua 12.3 Plt Count 183 MPV 10.1 Sodium 142 Potassium 3.6 Chloride 105 Carbon Dioxide 31 Anion Gap 6 BUN 15 Creatinine 0.65 Est Cr Clr Drug Dosing Not Reportable Est GFR ( Amer) 111.8 Est GFR (Non-Af Amer) 96.5 BUN/Creatinine Ratio 23.1 H Glucose 101 H Calcium 9.4 ALCON Screen POSITIVE A ALCON Titer 1:320 H ALCON Pattern Cytoplasmic A Current Inpatient Medications Current Inpatient Medications: Current Inpatient Medications Acetaminophen (Acetaminophen 325 Mg Tab) 650 mg PO Q4H PRN PRN Reason: pain/fever Stop: 03/13/24 21:33 Last Admin: 02/15/24 22:04 Dose: 650 mg Amlodipine Besylate (Amlodipine Besylate 5 Mg Tab) 10 mg PO DAILY DERRICK Stop: 03/14/24 08:59 Last Admin: 02/16/24 08:50 Dose: 10 mg Citalopram Hydrobromide (Citalopram 20 Mg Tab) 20 mg PO DAILY DERRICK Stop: 03/14/24 08:59 Last Admin: 02/16/24 08:50 Dose: 20 mg Cyanocobalamin (Cyanocobalamin (B-12) 500 Mcg Tablet) 1,000 mcg PO QAM DERRICK Stop: 03/15/24 08:59 Last Admin: 02/16/24 08:50 Dose: 1,000 mcg Divalproex Sodium (Divalproex Delay Release 250 Mg Tabec) 250 mg PO HS DERRICK Stop: 03/16/24 20:59 Last Admin: 02/15/24 22:05 Dose: 250 mg Ceftriaxone Sodium 2,000 mg/ (Dextrose) 50 mls @ 100 mls/hr IV Q24H [facility]; Protocol Stop: 02/22/24 21:59 Last Infusion: 02/15/24 22:35 Dose: Infused
[2024-02-16] MEDS: LACTATED RINGER'S 1,000 ML IV SCH (12:07)
[2024-02-16] MEDS ORDERED: fentaNYL citrate PF 100 MCG/2 ML VIAL ONE (12:19)
[2024-02-16] MEDS ORDERED: MIDAZOLAM HCL 1 MG/ML 2ML VIAL ONE (12:19)
[2024-02-16] MEDS ORDERED: ATROPINE SULFATE 0.1 MG/ML 10ML SYR IV PRN (12:23)
[2024-02-16] MEDS ORDERED: ePHEDrine sulfate 50 MG/ML AMP IV PRN (12:23)
[2024-02-16 13:13] LABS: Total Protein CSF 35.7 mg/dl (15-45)
[2024-02-16] MEDS: GADOBUTROL 65ML VIAL IV ONE (13:16)
[2024-02-16 13:21] LABS: Appearance CSF Clear; CSF Count Tube # 3; CSF Xanthrochromic No xanthochromia; Color CSF Colorless; Red Blood Cell CSF Manual 0 (0-); White Blood Cell CSF Manual 0 (0-5)
--- NOTE | 2024-02-16 14:03 | Fluoroscopy Report ---
Fluoroscopic guided lumbar puncture INDICATION: Mental status change; rule out encephalitis PROCEDURE: Procedure and risks were explained. Informed consent was obtained. A final timeout was com pleted. The patient was placed prone on the fluoroscopic exam table. The lower lumbar region was prep ped and draped in sterile fashion. 1% lidocaine was utilized for skin anesthesia. Utilizing fluoroscopic guidance, a 22-gauge spinal needle was advanced into the intrathecal space at the L4-5 disc space level. 2 spot images were obtained. Approximately 8 mL of clear CSF fluid was sen t to the lab for analysis. The needle was removed and Band-Aid applied. The patient tolerated the pro cedure well. Vital signs will be monitored postprocedure. Fluoroscopy time was 17 seconds. Study dose is 20.37 mGy. IMPRESSION: Lumbar puncture as above. Performed, dictated, and signed by Tano Craig PA-C; to be co-signed by Dr. Sascha Fischer. Electronically signed by: Sascha Fischer M.D. 02/16/2024 2:03 PM
--- NOTE | 2024-02-16 14:23 | Anesthesiology Progress Note ---
Date of Service February 16, 2024 Anesthesia Post Procedure Vital Signs Vital Signs: Temp Pulse Pulse Resp BP BP Pulse Ox 02/16/24 14:08 36.7 C 82 14 145/82 H 100 02/16/24 13:55 36.9 C 71 12 136/84 97 02/16/24 13:45 70 12 128/85 97 02/16/24 13:37 37 C 68 12 139/82 97 02/16/24 11:58 36.9 C 73 20 161/89 H 98 02/16/24 07:35 36.7 C 69 18 156/90 H 97 02/15/24 19:42 36.8 C 67 19 141/84 H 97 02/15/24 15:28 36.7 C 77 20 164/78 H 98 O2 Del Method 02/16/24 14:08 Room Air 02/16/24 13:55 Room Air 02/16/24 13:45 Room Air 02/16/24 13:37 Room Air 02/16/24 11:58 Room Air 02/16/24 07:35 Room Air 02/15/24 19:42 Room Air 02/15/24 15:28 Room Air Pain Intensity Head: Pain Intensity: 0 Transfer of Care Handoff Completed per policy Notes Mental Status: alert / awake / arousable and participated in evaluation Patient Amnestic to Procedure: Yes Nausea / Vomiting: adequately controlled Pain: adequately controlled Airway Patency, RR, SpO2: stable & adequate BP & HR: stable & adequate Hydration State: stable & adequate Anesthetic Complications: no major complications apparent and Pt Satisfied with anesthetic care
[2024-02-16 14:26] LABS: Cryptococcus neoformans/ga PCR Not Detected (NotDetected); Cytomegalovirus PCR Not Detected (NotDetected); Enterovirus PCR Not Detected (NotDetected); Escherichia coli K1 PCR Not Detected (NotDetected); Haemophilius influenzae PCR Not Detected (NotDetected); Herpes Simplex Virus 1 PCR Not Detected (NotDetected); Herpes Simplex Virus 2 PCR Not Detected (NotDetected); Human Herpes Virus 6 PCR Not Detected (NotDetected); Human Parechovirus PCR Not Detected (NotDetected); Listeria monocytogenes PCR Not Detected (NotDetected); Neisseria meningitidis PCR Not Detected (NotDetected); Streptococcus agalactiae PCR Not Detected (NotDetected); Streptococcus pneumoniae PCR Not Detected (NotDetected); Varicella Zoster Virus PCR Not Detected (NotDetected)
--- NOTE | 2024-02-16 14:33 | Magnetic Resonance Report ---
MR brain wo/w con HISTORY: 58 years-old Female acute psychosis, AMS Acutely altered mental status. COMPARISON: 02/12/2024. TECHNIQUE: Multiplanar multisequence MRI of the brain was obtained with and without IV contrast. FINDINGS: No restricted diffusion. Midline structures are unremarkable. Partially empty sella. No acute intracr anial hemorrhage, midline shift, abnormal extra-axial collection, hydrocephalus or intra-axial mass. Mild scattered T2/FLAIR hyperintense foci throughout the white matter likely representing early quiroz es of chronic microvascular ischemic disease. Cerebral venous sinuses and major arterial flow voids appear patent. Skull, orbits and soft tissues a re unremarkable. Mastoid air cells are clear. Faoh-ev-pzhcxdck mucosal thickening of the maxillary an d ethmoid sinuses. No abnormal enhancement. IMPRESSION: 1. No acute intracranial abnormality. No acute or subacute infarct. 2. No abnormal enhancement. ACT 112: Negative or not required by law. The above report was generated using voice recognition software. It may contain grammatical, syntax o r spelling errors. Dictated: 02/16/2024 1:40 PM Transcribed: 02/16/2024 1:55 PM Juanita [id number] Micheal [id number] Electronically signed by: Sascha Fischer M.D. 02/16/2024 2:31 PM
--- NOTE | 2024-02-16 16:55 | Billing Data ---
Date of Service February 16, 2024 Coding Level of Care Code 57709 SUB INP/OBS CARE
[2024-02-17 06:02] LABS: Hemoglobin 13.7 g/dl (12.0-16.0); Mean Corpuscular Hemoglobin 29.9 pg (25.0-34.0); Mean Corpuscular Hgb Conc 33.4 g/dL (32.0-36.0); Mean Corpuscular Volume 89.5 fL (80.0-100.0); Mean Platelet Volume 10.2 fL (9.4-12.4); Platelet Count 186 K/uL (130-400); RDW Coefficient of Variation 12.2 % (11.5-14.5); RDW Standard Deviation 39.5 fL (36.4-46.3); Red Blood Count 4.58 M/uL (4.20-5.40); White Blood Count 5.24 K/ul (4.8-10.8)
[2024-02-17 06:16] LABS: Anion Gap 6 (3-11); BUN Creatinine Ratio 23.3 (10-20); Blood Urea Nitrogen 14 mg/dl (6-23); Calcium 9.9 mg/dl (8.6-10.3); Carbon Dioxide 30 mmol/L (21-32); Chloride 105 mmol/L (98-107); Est GFR (African American) 114.8 ml/min; Est GFR (Non-African American) 99.1 ml/min; Glucose 97 mg/dl (70-99(Fasting)); Magnesium 2.3 mg/dl (1.7-2.4); Potassium 4.2 mmol/L (3.5-5.1); Sodium 141 mmol/L (136-145)
--- NOTE | 2024-02-17 07:10 | Hospitalist Progress Note ---
"Date of Service February 17, 2024 Assessment & Plan (1) Acute psychosis: Plan: Auditory Hallucination | Acute Psychosis - Presentation w/ hallucinations of God/Mc, relatives, having a brain tumor, and personal/family member's being - Progressed over the last 6 weeks, but most acutely 2-3 days prior to admission Multiple possible etiologies from history: 1) Insomnia - extended period of interrupted/insufficient sleep 2) -D-r-[id number]- - Diphenhydramine, Excedrin, withdrawal from citalopram 3) Infective - encephalitis, lyme 4) -G-[id number]-c-[id number]-m-[id number]- - prior ALCON positive, encephalitis 5) -B-n-d-r-v-k-i-[id number]-n-a-l- - recent diet changes, starvation ketosis, vitamin deficiencies 6) Psychiatric - longstanding anxiety, psychotic event, MDD with psychotic features - Received MRI/LP under general anesthesia today - MRI negative - Full CSF results pending - Rocephin ongoing for potential Lyme (IgG and IgM positive, bands pending), 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, CSF studies pending - Psychiatry following, appreciate recommendations: Added Depakote and B12 supplementation, Zyprexa 2.5 mg BID for agitated psychosis - ALCON remains elevated, but unchanged from prior, MRI & preliminary CSF w/o changes consistent with autoimmune etiology - Continue to suspect acute psychosis (2) Encounter for assessment of decision-making capacity: Plan: Patient currently AO x 4 with insight (3) Hypokalemia: Plan: - Resolved, continue to follow (4) Anxiety: Plan: Continue citalopram (5) Hypertension: Plan: Continue amlodipine Plan VTE Prophyalxis - low risk, encourage ambulation Diet - Regular Disposition - Med/Surg CODE STATUS: Full code Admission and Anticipated Discharge Date Admission Date: February 14, 2024 Subjective 02/15: Patient notes she is feeling better. She notes that she was awake some of the night due to anxiety regarding her procedure today. Patient was able to more freely discuss the events of her admission today. She is no longer having thoughts about being or her nieces being . She also notes that she was on a spiritual journey prior to admission, and that she has reconciled those problems and is feeling much better about them - thought she was not willing to elaborate further. Patient further denied any chest pain, dyspnea, abdominal pain, nausea or vomiting. She is not experiencing any headaches, vision changes, or hallucinations. She continues to endorse a good appetite. Patient feels like she has been improving over the last few days. 02/16: Physical Exam Physical Exam: General: NAD, pleasant, AO x 4 (w/ situational awareness) Cardiovascular: RRR, normal S1/S2. No murmurs, rubs, or gallops. Respiratory: Clear to auscultation bilaterally. No rales, wheezing, or rhonchi. Non-labored. GI: Normoactive bowel sounds. No masses appreciated on palpation. MSK: No edema visualized on extremities. Skin: No rashes, lesions, or erythema Results & Data Results & Data Vital Signs (Past 12 Hours) Vital Signs Temp Pulse Resp BP Pulse Ox O2 Del Method 02/17/24 00:00 36.5 C 78 16 166/89 H 99 Room Air"
--- NOTE | 2024-02-17 07:56 | Psychiatric Progress Note ---
Date of Service February 17, 2024 Impression / Recommendations Impression There is evidence of improvement this morning in the areas of mood thought process and thought content. Depakote 500mg was well-tolerated. Temporal lobe epilepsy is high in the differential due to reports of involuntary facial movements that occur occasionally accompanied by headache, difficulty sleeping, visual hallucinations, and a sensation of "having a jain experience." Recommend continuing exploration. Patient will benefit from EEG. If not able to sit on a regular EEG, will benefit from a 24-hour EEG. Depakote will need to be held for the study. Otherwise continue Depakote at current dose. Overall, I spent a total of 35 minutes with this case, including review of chart,direct evaluation of the patient,and documentation. (1) Unspecified psychosis not due to a substance or known physiological condition: Plan 02/17/24: 1. Continue Depakote 500mg PO HS 2. Consider Neuro consult / EEG 3. Continue monitoring of mood and psychotic symptoms. 02/16/24: 1. Consider increasing Depakote DR to 500mg po QHS. Patient agreed to try a higher dose. 2. Continue treatment for general medical conditions as prescribed by primary team. 3. Continue monitoring of mood and psychotic symptoms. 4. May use Zyprexa Zydis to 2.5 mg twice a day as needed for agitated psychosis. Not to exceed 5 mg in 24 hours. 5. Discontinue one-to-one observation after MRI is completed 7. Psychiatry will continue to follow up. 02/15/24: 1. Depakote DR 250mg po QHS, may not be needed. Continue in case headaches continue. Discontinue if amonia level increases. 2. Continue treatment for general medical conditions as prescribed by primary team. 3. Continue monitoring of mood and psychotic symptoms. 4. May use Zyprexa Zydis to 2.5 mg twice a day as needed for agitated psychosis. Not to exceed 5 mg in 24 hours. 5. Discontinue one-to-one observation after MRI is completed 7. Psychiatry will continue to follow up. 02/14/24: 1. Start Depakote DR 250mg po QHS 2. Continue treatment for general medical conditions as prescribed by primary team. 3. Continue monitoring of mood and psychotic symptoms.. 4. May use Zyprexa Zydis to 2.5 mg twice a day as needed for agitated psychosis. Not to exceed 5 mg in 24 hours. 5. Continue one-to-one observation. 7. Psychiatry will continue to follow up. 02/13/24: 1. Continue monitoring of mood and psychotic symptoms. 2. Continue treatment for general medical conditions as prescribed by primary team. 3. Start B12 supplementation. 4. May use Zyprexa Zydis to 2.5 mg twice a day as needed for agitated psychosis. Not to exceed 5 mg in 24 hours. 5. Avoid the use of other medications with anticholinergic or sedative effect. 6. Continue one-to-one observation. 7. Psychiatry will continue to follow up. Suicide Risk Level Suicide Risk Level: Low (q15 min observation checks) Interval History Identifying Information atient is a 58-year-old with a psychiatric history of bereavement and depression. No prior history of psychosis. Admitted for an psychotic episode with paranoia, and delusions (jain paranoid and somatic themes), visual hallucination. This episode occurred in the context of some somatic complaints that include headaches difficulties with memory and attention word-finding, tinnitus, positive results for Lyme's disease, and proteinuria. Her blood pressure has been consistently elevated since the evening of February 11. Chief Complaint "I feel better". Subjective Subjective Patient was seen & assessed and interval progress reviewed with treatment team. The patient reported she had a good night of sleep, stated "I slept quite a few hours." Her mood is improved and so is her affect she. She is better engage, more communicative, less guarded. Patient is also more aware of her medical condition and asked appropriate questions. She had a good response to Depakote 500 mg at bedtime and denied side effects. We discussed a concern about possible temporal lobe seizures (concern also shared with primary team). I educated the patient about the need for further evaluation via EEG. The patient indicated that the visual hallucinations of seeing shapes is not present at the current time. When asked about this symptom, the patient stated "I thought everybody had that." She might still be underreporting some of her experiences. However, does not appear internally preoccupied. Procedures Performed Operation Date: 02/16/24 12:30 <No data on this case meets the specified criteria> Physical Exam Psychiatric Orientation: alert and oriented x 3 Apperance: appropriately dressed Eye Contact: good eye contact Motor Behavior: no abnormal motor movements Speech: normal rate/rhythm/volume of speech Affect: euthymic affect Mood: no depressed mood, no anxious mood and no irritable mood Thought Content: not paranoid Suicidal Thoughts: denies suicidal thoughts Homicidal Thoughts: denies homicidal thoughts Hallucinations: no auditory hallucinations and no visual hallucinations Improving. Improving. Vital Signs (Past 24 Hours) Last Vital Signs Temp 36.6 C 02/17/24 07:31 Pulse 76 02/17/24 07:31 Resp 16 02/17/24 07:31 BP 145/93 H 02/17/24 07:31 Pulse Ox 99 02/17/24 07:31 O2 Del Method Room Air 02/17/24 07:31 Results & Data ([facility]) Laboratory Results Laboratory Results - last 24 hr 02/16/24 02/16/24 02/16/24 Unknown Unknown Unknown WBC RBC Hgb Hct MCV MCH MCHC RDW Std Deviation RDW Coeff of Joshua Plt Count MPV Sodium Potassium Chloride Carbon Dioxide Anion Gap BUN Creatinine Est Cr Clr Drug Dosing Est GFR ( Amer) Est GFR (Non-Af Amer) BUN/Creatinine Ratio Glucose Calcium Magnesium Fld Lyme DNA (PCR) Pending Cancelled Fluid Comment CSF Appearance Clear CSF Color Colorless Xanthrochromic No xanthochromia CSF WBC 0 CSF RBC 0 CSF Cell Count Tube # 3 CSF Chemistry Tube # 1 CSF Glucose 65 CSF LDH Pending Cancelled CSF Lactate Pending CSF Total Protein 35.7 CSF VDRL Pending CSF Lyme IgG (Immblot) CSF Lyme IgG Band Pattern CSF Lyme IgM (Immblot) CSF Lyme IgM Band Pattern CSF C.neoform/gat PCR CSF CMV DNA (PCR) CSF Enterovirus (PCR) CSF E. coli K1 (PCR) CSF H. influenzae (PCR) CSF HSV I (PCR) CSF HSV II (PCR) CSF HHV 6 (PCR) CSF L.monocytogenes PCR CSF N. meningitidis PCR CSF Parechovirus (PCR) CSF S. agalactiae (PCR) CSF S. pneumoniae (PCR) CSF VZV DNA (PCR) CSF West Nile IgM Ab Lyme Specimen Source Lyme DNA Comment Cryptococcus Source Cryptococcal Ag (Latex) EBV Source EBV DNA, Quant EBV DNA (PCR) 02/16/24 02/16/24 02/16/24 Unknown Unknown Unknown WBC RBC Hgb Hct MCV MCH MCHC RDW Std Deviation RDW Coeff of Joshua Plt Count MPV Sodium Potassium Chloride Carbon Dioxide Anion Gap BUN Creatinine Est Cr Clr Drug Dosing Est GFR ( Amer) Est GFR (Non-Af Amer) BUN/Creatinine Ratio Glucose Calcium Magnesium Fld Lyme DNA (PCR) Fluid Comment CSF Appearance CSF Color Xanthrochromic CSF WBC CSF RBC CSF Cell Count Tube # CSF Chemistry Tube # CSF Glucose CSF LDH CSF Lactate CSF Total Protein CSF VDRL Cancelled CSF Lyme IgG (Immblot) Pending Cancelled CSF Lyme IgG Band Pattern Pending Cancelled CSF Lyme IgM (Immblot) Pending CSF Lyme IgM Band Pattern CSF C.neoform/gat PCR CSF CMV DNA (PCR) CSF Enterovirus (PCR) CSF E. coli K1 (PCR) CSF H. influenzae (PCR) CSF HSV I (PCR) CSF HSV II (PCR) CSF HHV 6 (PCR) CSF L.monocytogenes PCR CSF N. meningitidis PCR CSF Parechovirus (PCR) CSF S. agalactiae (PCR) CSF S. pneumoniae (PCR) CSF VZV DNA (PCR) CSF West Nile IgM Ab Lyme Specimen Source Lyme DNA Comment Cryptococcus Source Cryptococcal Ag (Latex) EBV Source EBV DNA, Quant EBV DNA (PCR) 02/16/24 02/16/24 02/16/24 Unknown Unknown Unknown WBC RBC Hgb Hct MCV MCH MCHC RDW Std Deviation RDW Coeff of Joshua Plt Count MPV Sodium Potassium Chloride Carbon Dioxide Anion Gap BUN Creatinine Est Cr Clr Drug Dosing Est GFR ( Amer) Est GFR (Non-Af Amer) BUN/Creatinine Ratio Glucose Calcium Magnesium Fld Lyme DNA (PCR) Fluid Comment CSF Appearance CSF Color Xanthrochromic CSF WBC CSF RBC CSF Cell Count Tube # CSF Chemistry Tube # CSF Glucose CSF LDH CSF Lactate CSF Total Protein CSF VDRL CSF Lyme IgG (Immblot) CSF Lyme IgG Band Pattern CSF Lyme IgM (Immblot) Cancelled CSF Lyme IgM Band Pattern Pending Cancelled CSF C.neoform/gat PCR Not Detected CSF CMV DNA (PCR) Not Detected CSF Enterovirus (PCR) Not Detected CSF E. coli K1 (PCR) Not Detected CSF H. influenzae (PCR) Not Detected CSF HSV I (PCR) Not Detected CSF HSV II (PCR) Not Detected CSF HHV 6 (PCR) Not Detected CSF L.monocytogenes PCR Not Detected CSF N. meningitidis PCR Not Detected CSF Parechovirus (PCR) Not Detected CSF S. agalactiae (PCR) Not Detected CSF S. pneumoniae (PCR) Not Detected CSF VZV DNA (PCR) Not Detected CSF West Nile IgM Ab Pending Lyme Specimen Source Pending Cancelled Lyme DNA Comment Cancelled Cryptococcus Source Pending Cryptococcal Ag (Latex) Pending EBV Source Pending EBV DNA, Quant EBV DNA (PCR) 02/16/24 02/16/24 02/16/24 Unknown Unknown Unknown WBC RBC Hgb Hct MCV MCH MCHC RDW Std Deviation RDW Coeff of Joshua Plt Count MPV Sodium Potassium Chloride Carbon Dioxide Anion Gap BUN Creatinine Est Cr Clr Drug Dosing Est GFR ( Amer) Est GFR (Non-Af Amer) BUN/Creatinine Ratio Glucose Calcium Magnesium Fld Lyme DNA (PCR) Fluid Comment CSF Appearance CSF Color Xanthrochromic CSF WBC CSF RBC CSF Cell Count Tube # CSF Chemistry Tube # CSF Glucose CSF LDH CSF Lactate CSF Total Protein CSF VDRL CSF Lyme IgG (Immblot) CSF Lyme IgG Band Pattern CSF Lyme IgM (Immblot) CSF Lyme IgM Band Pattern CSF C.neoform/gat PCR CSF CMV DNA (PCR) CSF Enterovirus (PCR) CSF E. coli K1 (PCR) CSF H. influenzae (PCR) CSF HSV I (PCR) CSF HSV II (PCR) CSF HHV 6 (PCR) CSF L.monocytogenes PCR CSF N. meningitidis PCR CSF Parechovirus (PCR) CSF S. agalactiae (PCR) CSF S. pneumoniae (PCR) CSF VZV DNA (PCR) CSF West Nile IgM Ab Lyme Specimen Source Lyme DNA Comment Cryptococcus Source Cryptococcal Ag (Latex) EBV Source Cancelled EBV DNA, Quant Pending Cancelled EBV DNA (PCR) Pending Cancelled 02/17/24 05:36 WBC 5.24 RBC 4.58 Hgb 13.7 Hct 41.0 MCV 89.5 MCH 29.9 MCHC 33.4 RDW Std Deviation 39.5 RDW Coeff of Joshua 12.2 Plt Count 186 MPV 10.2 Sodium 141 Potassium 4.2 Chloride 105 Carbon Dioxide 30 Anion Gap 6 BUN 14 Creatinine 0.60 Est Cr Clr Drug Dosing Not Reportable Est GFR ( Amer) 114.8 Est GFR (Non-Af Amer) 99.1 BUN/Creatinine Ratio 23.3 H Glucose 97 Calcium 9.9 Magnesium 2.3 Fld Lyme DNA (PCR) Fluid Comment CSF Appearance CSF Color Xanthrochromic CSF WBC CSF RBC CSF Cell Count Tube # CSF Chemistry Tube # CSF Glucose CSF LDH CSF Lactate CSF Total Protein CSF VDRL CSF Lyme IgG (Immblot) CSF Lyme IgG Band Pattern CSF Lyme IgM (Immblot) CSF Lyme IgM Band Pattern CSF C.neoform/gat PCR CSF CMV DNA (PCR) CSF Enterovirus (PCR) CSF E. coli K1 (PCR) CSF H. influenzae (PCR) CSF HSV I (PCR) CSF HSV II (PCR) CSF HHV 6 (PCR) CSF L.monocytogenes PCR CSF N. meningitidis PCR CSF Parechovirus (PCR) CSF S. agalactiae (PCR) CSF S. pneumoniae (PCR) CSF VZV DNA (PCR) CSF West Nile IgM Ab Lyme Specimen Source Lyme DNA Comment Cryptococcus Source Cryptococcal Ag (Latex) EBV Source EBV DNA, Quant EBV DNA (PCR) Current Inpatient Medications Current Inpatient Medications: Current Inpatient Medications Acetaminophen (Acetaminophen 325 Mg Tab) 650 mg PO Q4H PRN PRN Reason: pain/fever Stop: 03/13/24 21:33 Last Admin: 02/16/24 16:59 Dose: 650 mg Amlodipine Besylate (Amlodipine Besylate 5 Mg Tab) 10 mg PO DAILY DERRICK Stop: 03/14/24 08:59 Last Admin: 02/16/24 08:50 Dose: 10 mg Citalopram Hydrobromide (Citalopram 20 Mg Tab) 20 mg PO DAILY DERRICK Stop: 03/14/24 08:59 Last Admin: 02/16/24 08:50 Dose: 20 mg Cyanocobalamin (Cyanocobalamin (B-12) 500 Mcg Tablet) 1,000 mcg PO QAM DERRICK Stop: 03/15/24 08:59 Last Admin: 02/16/24 08:50 Dose: 1,000 mcg Divalproex Sodium (Divalproex Delay Release 250 Mg Tabec) 250 mg PO HS DERRICK Stop: 03/16/24 20:59 Last Admin: 02/16/24 21:02 Dose: 250 mg Ceftriaxone Sodium 2,000 mg/ (Dextrose) 50 mls @ 100 mls/hr IV Q24H DERRICK; Protocol Stop: 02/22/24 21:59 Last Infusion: 02/16/24 21:42 Dose: Infused Lactated Ringer's (Lr) 1,000 mls @ 15 mls/hr IV .Q24H DERRICK Stop: 03/17/24 12:14 Last Infusion: 02/16/24 12:19 Dose: Infused
--- NOTE | 2024-02-17 10:53 | Discharge Summary ---
"Date of Service February 17, 2024 Admission HPI Per Admitting Provider Kadie Roldan is a 58 year old female who presents to the ER with altered mental state. No family members at bedside when seen. She reports she is in the ER because she went to her [id number] house and asked her to bring her to the ER as her has been with other women and stolen money from her late father's estate and buried it. She is also here because she has been going through spiritual things - when I ask her to expand on this she says the spiritual things have made her go this way and that. She denies any current physical complaints. No fever, chills, respiratory, gastrointestinal or urinary complaints. She reports her anxiety is well controlled and initially told me she feels better since stopping the citalopram a few days ago because it made her feel jittery but later on she tells me she stopped the citalopram 3-4 months ago. She denies taking any sleep aids but does report sleeping 2 hours a night which she puts down to neck stiffness. She reports taking Excedrin daily for th is neck stiffness. History of migraines in PCP notes although she reports no recent headaches. No vision, speech, hearing changes. No extremity weakness. After ordering the brain MRI she told her nurse and confirmed with me that she was so she couldn't have this and refused a test for confirmation. Discussed presentation with her and sister in law (Sari): 2 years ago her father and she has had problems with depression since. He thinks she has been taking diphenhydramine at night perhaps for the last 6 months to help with sleep and allergic nasal congestion. He also found pantoprazole (her father's prescription) in her bedside drawer. Over the last 6 weeks he describes her having more of a breakdown. She has increasingly had intermediate odd periods where she would say God, Mc and her parents were talking to her. Although she is catholic this appeared to be significantly abnormal for her. 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 These delusions have significantly increased the last 2 days and she has been rambling a lot more and not making sense. She tells her he is her whole world one minute then later accuses him of being with other women (which he denies). At work she stayed in her car and when a co-worker went to help her she said she had the devil inside her and not to touch her, she looked at the patricio and said the world was going to end. Yesterday she told her she had a brain tumor and she was going to . She told her to pray otherwise he was going to hell. He reports her diet has always been bad - loads up on peanut butter, chocolate and cookies but rep ortedly told she was overweight at her last PCP appointment 6 weeks ago so started dieting with fasting for 16 hours at a time. He notes she does take a multivitamin for her hair, nails. He confirms her sleep has also been bad sleeping 2 hours a night and wandering the rest of the time - he thinks this has been for the last 2-3 months. She has 37 pills of citalopram left in the bottle (picked up 90 pills 70 days ago) - therefore ?2 weeks of not taking citalopram although her reports she would miss the occasional days so more likely just a few days of missed pills, unlikely months as she reported above. Admission Exam Per Admitting Provider Constitutional: WD/WN, vitals as above Eyes: PERRL, conjunctivae normal, anicteric sclerae EOM intact bilaterally ENMT: external ear and nose normal, oropharynx normal Neck: trachea midline, no thyromegaly Respiratory: normal respiratory effort, lungs clear to auscultation Cardiovascular: RRR, no murmur, no edema Gastrointestinal (Abdomen): normal bowel sounds, soft, nontender, no hepatosplenomegaly Musculoskeletal: no cyanosis or clubbing, extremities motor strength 5/5 Skin: no rashes, warm and dry Neurologic: CN's II-XI intact bilaterally, moves all extremities, awake and + confused; + abnormal deep tendon reflexes (increased b/l equal) and no focal motor deficits Psychiatric: Orientation: alert and oriented x 3 Apperance: appropriately dressed Eye Contact: good eye contact Motor Behavior: + psychomotor retardation Speech: normal rate/rhythm/volume of speech Affect: + flat affect Thought Process: + looseness of associations Thought Content: + paranoid and + delusions (jealous and somatic type ( being with other women, being )) Genitourinary: no CVA tenderness Principal Diagnosis Altered Mental Status Discharge Exam General: NAD, pleasant, AO x 4 (w/ situational awareness) Cardiovascular: RRR, normal S1/S2. No murmurs, rubs, or gallops. Respiratory: Clear to auscultation bilaterally. No rales, wheezing, or rhonchi. Non-labored. GI: Normoactive bowel sounds. No masses appreciated on palpation. MSK: No edema visualized on extremities. Skin: No rashes, lesions, or erythema Discharge Data Allergies Allergy/AdvReac Type Severity Reaction Status Date / Time NSAIDS (Non-Steroidal Allergy Intermediate asthma Verified 07/27/23 14:44 Anti-Inflamma attack Consultations 02/12/24 18:19 ED Decision to Admit Stat 02/12/24 21:34 Consult Psychiatry Routine 02/15/24 13:55 Consult Anesthesiology Routine Procedures Performed Operation Date: 02/16/24 12:30 <No data on this case meets the specified criteria> Ordered Studies 02/12/24 11:09 CT head/brain wo con Stat 02/16/24 12:30 IR lumbar puncture diagnostic Routine 02/16/24 13:55 MR brain wo/w con Routine Hospital Course (1) Acute psychosis: (2) Encounter for assessment of decision-making capacity: (3) Hypokalemia: (4) Anxiety: (5) Hypertension: Plan Auditory Hallucination | Acute Psychosis - Presentation w/ hallucinations of God/Mc, relatives, having a brain tumor, and personal/family member's being - Progressed over the last 6 weeks, but most acutely 2-3 days prior to admission Multiple possible etiologies from history: 1) -P-b-t-o-m-n-i-a- - extended period of interrupted/insufficient sleep 2) -D-r-u-g-s- - Diphenhydramine, Excedrin, withdrawal from citalopram 3) Infective - encephalitis, lyme 4) -I-u-l-j-w-g-m-u-n-e- - prior ALCON positive, encephalitis 5) -J-x-u-k-d-o-i-o-n-a-l- - recent diet changes, starvation ketosis, vitamin deficiencies 6) Psychiatric - longstanding anxiety, psychotic event, MDD with psychotic features - Received MRI/LP under general anesthesia - MRI negative, CSF studies reassuring, some studies pending - Rocephin ongoing for potential Lyme Encephalitis (IgG and IgM positive, bands pending), would be atypical for Lyme encephalitis, CSF studies pending, dc on PO Doxycycline - Psychiatry following, appreciate recommendations: Continue Depakote upon discharge. - Recommend outpatient Neurology follow up, consider EEG - ALCON remains elevated, but unchanged from prior, MRI & preliminary CSF w/o changes consistent with autoimmune etiology - At this point, patient's symptoms are improving (potential waxing and waning component),improvement associated with introduction of antibiotics for Lyme, continue with treatment course for [employer]ICATION[employer] SPECIALIST Lyme, continue ongoing workup as outpatinet. Encounter for assessment of decision-making capacity: - Patient currently AO x 4 with insight Hypokalemia: - Resolved, continue to follow Anxiety: - Continue citalopram Hypertension - Continue amlodipine Plan VTE Prophyalxis - low risk, encourage ambulation Diet - Regular Disposition - home CODE STATUS: Full code Total Time Total Time Spent Total Time Spent (In Minutes): <30 Discharge Plan Discharge Items Patient Disposition: Home - Self-Care Reason For Visit: ALTERED MENTAL STATUS Discharge Diagnosis: Acute Psychosis Activity: Per Instructions section Non-emergency contact: Primary Care Provider Call non-emergency contact if: you have any medication questions and your symptoms worsen Follow-up/Referrals: Antonio Eisenberg MD [Primary Care Provider] - 02/24/24 2:45 pm Diet: Regular Addtl Attending Provider Instructions: You were admitted to the hospital for behavioral changes and altered mental status. You received test and imaging inpatient. It was found that that your Lyme antibodies were positive, so you were started on antibiotics inpatient. You received a Brain MRI and Lumbar Puncture. Brain MRI was negative. Complete Lumbar Puncture results are pending. Pending Studies at Discharge: Yes Studies:: CSF Lyme Stand-Alone Forms: My Dashbook, Smoking Cessation Medications and DC Order Prescriptions: New divalproex 250 mg Tablet,Delayed Release (Dr/Ec) 500 mg PO HS 30 Days Qty: 60 0RF cyanocobalamin (vitamin B-12) 500 mcg Tablet 1,000 mcg PO QAM 30 Days Qty: 60 0RF doxycycline hyclate 100 mg capsule 100 mg PO BID 28 Days Qty: 56 0RF Continued amlodipine 10 mg tablet 10 mg PO DAILY Qty: 90 3RF citalopram 20 mg tablet 20 mg PO DAILY Qty: 90 3RF Discharge Orders: Discharge Order (Routine); Ordered 02/17/24 Ordered By: Elkin Teran Admission Data Admit Date/Time: 02/14/24 13:44 Attending Provider: Elkin Teran Admit Provider: Jeff Beck Primary Care Provider: Antonio Eisenberg Other Providers: Jeff Beck; Michelle Peguero; Georges Garcia; Oliver Becerra Jr; Viviane Sinclair; Cheryl Ojeda; Rachel Horan; Avis Blancas; Meera Wahl; Ita Stein; Turner Be; Sarmad Luz; Clinton Bueno; Skinny Santos; Kathrine Santos; Luis Eduardo Oliver; Terrei Abbott; Reid Atwood; Landon Guillaume; Bhavin Strong; Lucio Alexander; Ene Kolb; Jese Quick; Elizabeth Quick ; Miguel Lebron; Ebony Campos; Marbin Velasquez; Maren Hart; Tarsha Becker; Georges Key; Mima Hartman A; Ruby Zhao; Shantel Castillo; Mikayla Miller; Cliff Miller V; Luis Sevilla; Avis Stein; Jaciel Mayo; Liseth Penny; Cliff Martinez; Brayan Kolb; Rigo Glover; Dariana Stephenson; Saray Davenport; Cliff Mckenzie; Omar Fuchs; Sharon Meyer; Daniel Preciado; Elise Matt; Sweta Daley; Oliver Soliman; Onel Alexander; Jannette Mack; Deborah Toledo; Blayne Tafoya; Pedro Luis Peterson; Turner Alvarez Jr; Alana Browne; Rosa Elena Christianson; Glenna Jones; Georges Tsang; Skinny Claros; Ileana Hercules; Rosa Elena Orellana; Greg Clark; Jamison Thorpe; Antonio Merritt; Nakul Aceves; Christina Cortez; Tang Ramírez; Nimco Freeman; Nika Blood Other Interventions: Discharge Summary Assessment (RN) Last Done: 02/17/24 14:30 Supervising Physician Co-Signing Physician Notes I personally examined the patient and verified all martinez points of history and exam, discussed case, and agree with decision making with Dr Meier Feels good and would like to go home. Discussed getting EEG firsteven if results are read after discharge, unfortunately this was not able to be done in a timely fashion, and patient very much wanted to go homewe asked that outpatient neurology be set up, and patient was safe/stable for home. Vitals noted, in general she is awake and alert pleasant no distress. HEENT normocephalic atraumatic mucous membranes moist. Breathing unlabored no accessory muscle use good effort. Skin without rashes pallor or icterus. IMPRESSION & PLAN Acute psychoses with hallucination Major depressive disorder Insomnia Appreciate psychiatric consultation MRI and initial studies on LP reassuringobviously multiple send out studies on LP pending. In discussion with psychiatrywould like to obtain EEG to rule out temporal lobe epilepsy. given inability to get EEG done prior to patient leaving, will need to have outpatient neurology follow-up to entertain the possible differential of focal seizures (seems unlikely but understandably reasonable to rule out). It is possible that this was IT COMMUNICATIONS SPECIALIST Lyme and the [place] mondragon is helping. Certainly given that psychiatry does not believe this to be a primary psychiatric disorder, in the end if we rule out other offending possibilities we could eventually arrive at the conclusion that this was [employer] SPECIALIST Lyme. Home on Depakote and doxycycline. Outpatient PCP and neurology follow-up, ongoing outpatient psychiatry follow-up if needed otherwise as above"
--- NOTE | 2024-02-17 19:58 | Billing Data ---
Date of Service February 17, 2024 Coding Level of Care Code 54280 IN/OBS DISCH 30 MIN/LESS
[2024-02-22 21:22] LABS: CSF, LDH 11 U/L (<=25); Cryptococcal Antigen Not Detected (Not Detected); EBV DNA Quant PCR Not Detected copies/mL; EBV DNA Quant Source CSF; Lyme DNA PCR CSF or Synovial Not Detected (Not Detected); Lyme DNA Source CSF; Lyme IgG CSF BAND(S) PRESENT; Lyme IgM Band Pattern CSF DNR; Lyme IgM CSF NO BANDS DETECTED; Source CSF; VDRL Qualitative CSF Nonreactive (Nonreactive)
== END 2024-02-17 15:34 | disposition home or self-care (01) | DRG 885 ==
LOC: 3E 10:46 → ED 10:46 → SUATTDRO 18:35 → 3E 20:51